=== PATIENT | female | born 1965 | race American Indian/Alaskan Native ===

== ENCOUNTER 2018-10-18 15:52 | Inpatient (IN) | payer OTHER, SELFPAY ==
[2018-10-18] MEDS ORDERED: ACETAMINOPHEN 500 MG TAB ONE (16:00)
[2018-10-18 16:34] LABS: Basophils % 0.7 % (0-1.3); Hematocrit 39.8 % (39.6-49.0); Lymphocytes % 7.5 % (15.3-44.8); MPV 9.4 fL (7.6-11.3); RBC Red Blood Cell Count 4.48 M/uL (4.33-5.43)
[2018-10-18] MEDS ORDERED: ONDANSETRON 4 MG/2 ML VIAL ONE (16:45)
[2018-10-18] MEDS ORDERED: NA CHLORIDE 0.9% 1,000 ML ONE ×2 (16:46→17:55)
[2018-10-18 16:48] LABS: Albumin 2.9 g/dL (3.4-5.0); Bilirubin Direct 0.2 mg/dL (0-0.2); Bilirubin Total 0.6 mg/dL (0.2-1.0); Potassium 3.7 mmol/L (3.5-5.1); Protein, Total 7.3 g/dL (6.4-8.2)
[2018-10-18 16:53] LABS: Urine Blood 3+ (NEG); Urine Glucose NEGATIVE (NEG); Urine Protein 2+ (NEG); Urine Specific Gravity 1.015 (1.005-1.030); Urine pH 5.5 (5.0-7.0)
[2018-10-18 17:07] LABS: Urine Bacteria >50 /HPF (NONE SEEN); Urine Culture Reflex Order REFLEXED; Urine Mucus 2+ /HPF (NONE SEEN)
--- NOTE | 2018-10-18 17:41 | RAD REPORT ---
EXAM DESCRIPTION: CT - Abdomen Pelvis W Contrast - 10/18/2018 5:24 pm CLINICAL HISTORY: Pelvic pain, fever, nausea and vomiting COMPARISON: None. TECHNIQUE: Biphasic, helical CT imaging of the abdomen and pelvis was performed following 100 ml non -ionic IV contrast. Oral contrast was given. All CT scans are performed using dose optimization technique as appropriate and may include automated exposure control or mA/KV adjustment according to patient size. FINDINGS: No suspicious findings in the lung bases. The liver, spleen, and pancreas show no suspicious findings. Cholecystectomy clips are present. No bi liary tree dilatation. Heterogeneous enhancement seen in the left renal parenchyma with numerous areas of diminished enhance ment. Right kidney enhances normally. Edema and stranding are seen in the left perinephric fat. Stran ding is seen along the course of the nondilated left ureter. No obstructing calculus. No solid mass l esion. Bladder is mostly contracted limiting assessment. No bladder calculus. No adrenal abnormalitie s. Uterus and ovaries show no suspicious findings. No dilated bowel loops or bowel wall thickening. Left-sided diverticulosis seen without diverticuliti s. No free air, free fluid or inflammatory stranding. No hernia, mass or bulky lymphadenopathy. No suspicious bony findings. IMPRESSION: Moderate severity left-sided pyelonephritis. No abscess or emergent complication.
--- NOTE | 2018-10-18 17:45 | RAD REPORT ---
EXAM DESCRIPTION: RAD - Chest Single View - 10/18/2018 5:10 pm CLINICAL HISTORY: Back pain, fever COMPARISON: February 2017 TECHNIQUE: AP portable chest image was obtained 1700 hours . FINDINGS: Lungs are clear. Heart and vasculature are normal. No measurable pleural effusion and no p neumothorax. No acute bony abnormality seen. No acute aortic findings suspected. IMPRESSION: No acute cardiopulmonary process. No significant interval change.
[2018-10-18] MEDS ORDERED: NA CHLORIDE 0.9% 500 ML ONE (17:55)
--- NOTE | 2018-10-18 18:04 | ER ---
Nurse's Notes [facility] Name: Magaly Sprague Age: 53 yrs Sex: Female : 1965 Arrival Date: 10/18/2018 Time: 15:54 Bed 30 Private MD: Diagnosis: Urosepsis;Acute tubulo-interstitial nephritis;Fever presenting with conditions classified elsewhere Presentation: 10/18 15:55 Presenting complaint: Patient states: it started last Friday, pain on my lower, fever, hj nausea vomiting, diarrhea started Friday morning; reports body aches;. Transition of care: patient was not received from another setting of care. Onset of symptoms was October 18, 2018. Risk Assessment: Do you want to hurt yourself or someone else? Patient reports no desire to harm self or others. Initial Sepsis Screen: Does the patient meet any 2 criteria? No. Patient's initial sepsis screen is negative. Does the patient have a suspected source of infection? No. Patient's initial sepsis screen is negative. Care prior to arrival: None. 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 - Social history:: Smoking status: Patient uses tobacco products, smokes one pack cigarettes per day. - Ebola Screening: : Patient negative for fever greater than or equal to 101.5 degrees Fahrenheit, and additional compatible Ebola Virus Disease symptoms Patient denies exposure to infectious person Patient denies travel to an Ebola-affected area in the 21 days before illness onset No symptoms or risks identified at this time. Screenin:15 Abuse screen: Denies threats or abuse. Denies injuries from another. Nutritional ca1 screening: No deficits noted. Tuberculosis screening: No symptoms or risk factors identified. Fall Risk IV access (20 points). Total Ovalles Fall Scale indicates No Risk (0-24 pts). Assessment: 16:28 General: Appears in no apparent distress. comfortable, Behavior is calm, cooperative, ca1 appropriate for age, Reports chills for >3 days, fever for > 3 days. Pain: Complains of pain in abdomen Pain radiates to back Pain currently is 6 out of 10 on a pain scale. Pain began 6 days ago. Neuro: Level of Consciousness is awake, alert, obeys commands, Oriented to person, place, time, situation. Cardiovascular: Heart tones S1 S2 present Capillary refill < 3 seconds Patient's skin is warm and dry. Respiratory: Airway is patent Respiratory effort is even, unlabored, Respiratory pattern is regular, symmetrical. GI: Abdomen is round non-distended, Bowel sounds present X 4 quads. Abd is soft X 4 quads Abdomen is tender to palpation X 4 quads. GI: Reports diarrhea, nausea, vomiting, since 6 days ago. : No deficits noted. No signs and/or symptoms were reported regarding the genitourinary system. EENT: No deficits noted. No signs and/or symptoms were reported regarding the EENT system. Derm: Skin is intact, is healthy with good turgor, Skin is pink, warm \T\ dry. Musculoskeletal: Circulation, motion, and sensation intact. Capillary refill < 3 seconds, Range of motion: intact in all extremities. 17:13 Reassessment: Patient appears in no apparent distress at this time. Patient and/or ca1 family updated on plan of care and expected duration. Pain level reassessed. Patient is alert, oriented x 3, equal unlabored respirations, skin warm/dry/pink. 18:10 Reassessment: Patient appears in no apparent distress at this time. Patient and/or ca1 family updated on plan of care and expected duration. Pain level reassessed. Patient is alert, oriented x 3, equal unlabored respirations, skin warm/dry/pink. 19:11 Reassessment: Patient appears in no apparent distress at this time. Patient and/or ca1 family updated on plan of care and expected duration. Pain level reassessed. Patient is alert, oriented x 3, equal unlabored respirations, skin warm/dry/pink. Vital Signs: 15:57 BP 117 / 60; Pulse 117; Resp 18; Temp 102.0(O); Pulse Ox 96% on R/A; Weight 81.65 kg; hj Height 5 ft. 0 in. (152.40 cm); Pain 6/10; 17:15 BP 114 / 63; Pulse 108; Resp 16 S; Temp 99.4(O); Pulse Ox 98% on R/A; ca1 18:10 BP 112 / 80; Pulse 95; Resp 18 S; Temp 99(O); Pulse Ox 100% on R/A; ca1 19:13 BP 103 / 85; Pulse 83; Resp 17 S; Temp 98.3(O); Pulse Ox 100% on R/A; ca1 19:14 Temp 98.4(O); ca1 15:57 Body Mass Index 35.15 (81.65 kg, 152.40 cm) ED Course: 15:54 Patient arrived in ED. mr 15:57 Triage completed. hj 15:57 Arm band placed on right wrist. hj 16:11 Ellis Alonso PA is PHCP. jr8 16:11 Adrian Mccarthy MD is Attending Physician. jr8 16:15 Patient has correct armband on for positive identification. Bed in low position. Call ca1 light in reach. Side rails up X 1. Pulse ox on. NIBP on. 16:15 No provider procedures requiring assistance completed. Inserted saline lock: 20 gauge ca1 in right antecubital area, using aseptic technique. Blood collected. 16:27 Ashley Prakash, RN is Primary Nurse. ca1 17:10 X-ray completed. Portable x-ray completed in exam room. Patient tolerated procedure mh1 well. 17:10 XRAY Chest (1 view) In Process Unspecified. EDMS 17:24 CT Abd/Pelvis - IV Contrast Only In Process Unspecified. EDMS 17:24 CT completed. Patient tolerated procedure well. Patient moved back from CT. mw3 18:00 Inserted saline lock: 20 gauge in left antecubital area, using aseptic technique. Blood ca1 collected. Patient admitted, IV remains in place. 18:02 Cecille Malone MD is Hospitalizing Provider. jr8 Administered Medications: 16:01 Drug: Tylenol 1000 mg Route: PO; hj 19:14 Follow up: Temp 98.4 Oral; Response: No adverse reaction; Temperature is decreased ca1 16:48 Drug: NS 0.9% 1000 ml Route: IV; Rate: 1000 ml; Site: right antecubital; ca1 19:02 Follow up: IV Status: Completed infusion ca1 16:48 Drug: Zofran 4 mg Route: IVP; Site: right antecubital; ca1 17:13 Follow up: Response: No adverse reaction; Nausea is decreased ca1 18:11 Drug: NS 0.9% (30 ml/kg) 30 ml/kg Route: IV; Rate: bolus; Site: right antecubital; ca1 19:03 Follow up: Response: No adverse reaction; IV Status: Completed infusion ca1 18:20 Drug: Rocephin - (cefTRIAXone) 2 grams Route: IVPB; Infused Over: 30 mins; Site: right ca1 antecubital; 19:02 Follow up: Response: No adverse reaction; IV Status: Completed infusion ca1 Outcome: 18:03 Decision to Hospitalize by Provider. aniket 19:45 Admitted to Med/surg accompanied by nurse, via wheelchair, room 209, with chart, Report ca1 called to Diamond Patricio RN 19:45 Condition: stable ca1 19:45 Instructed on the need for admit. 20:03 Patient left the ED. ca1 Signatures: Dispatcher [employer] BRONWYN FeltonJanine mr Triana Nina 1 Ellis Alonso PA PA jr8 Gabe Mckeon RN RN hj Willis, Michelle 3 Ashley Prakash RN RN ca1
--- NOTE | 2018-10-18 18:05 | EDPHYS ---
Physician Documentation [facility] Name: Magaly Sprague Age: 53 yrs Sex: Female : 1965 Arrival Date: 10/18/2018 Time: 15:54 Bed 30 Private MD: ED Physician Adrian Mccarthy HPI: 10/18 16:47 This 53 yrs old Other Male presents to ER via Ambulatory with complaints of Abdominal jr8 Pain, Vomiting/Diarrhea. 16:47 The patient presents with abdominal pain that is diffuse. Onset: The symptoms/episode jr8 began/occurred gradually, 5 day(s) ago. The symptoms do not radiate. Associated signs and symptoms: Pertinent positives: nausea, vomiting, and diarrhea. The symptoms are described as crampy, stabbing. Modifying factors: The symptoms are alleviated by nothing, the symptoms are aggravated by food. Severity of pain: At its worst the pain was moderate in the emergency department the pain is unchanged. The patient has not experienced similar symptoms in the past. The patient has not recently seen a physician. 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 - Social history:: Smoking status: Patient uses tobacco products, smokes one pack cigarettes per day. - Ebola Screening: : Patient negative for fever greater than or equal to 101.5 degrees Fahrenheit, and additional compatible Ebola Virus Disease symptoms Patient denies exposure to infectious person Patient denies travel to an Ebola-affected area in the 21 days before illness onset No symptoms or risks identified at this time. ROS: 16:47 Eyes: Negative for injury, pain, redness, and discharge, ENT: Negative for injury, jr8 pain, and discharge, Neck: Negative for injury, pain, and swelling, Cardiovascular: Negative for chest pain, palpitations, and edema, Respiratory: Negative for shortness of breath, cough, wheezing, and pleuritic chest pain, Back: Negative for injury and pain, MS/Extremity: Negative for injury and deformity, Skin: Negative for injury, rash, and discoloration, Neuro: Negative for headache, weakness, numbness, tingling, and seizure. 16:47 Constitutional: Positive for fever. 16:47 Abdomen/GI: Positive for abdominal pain, nausea, vomiting, and diarrhea, abdominal cramps, abdominal distension. Exam: 16:47 Eyes: Pupils equal round and reactive to light, extra-ocular motions intact. Lids and jr8 lashes normal. Conjunctiva and sclera are non-icteric and not injected. Cornea within normal limits. Periorbital areas with no swelling, redness, or edema. ENT: Nares patent. No nasal discharge, no septal abnormalities noted. Tympanic membranes are normal and external auditory canals are clear. Oropharynx with no redness, swelling, or masses, exudates, or evidence of obstruction, uvula midline. Mucous membranes moist. Neck: Trachea midline, no thyromegaly or masses palpated, and no cervical lymphadenopathy. Supple, full range of motion without nuchal rigidity, or vertebral point tenderness. No Meningismus. Cardiovascular: Regular rate and rhythm with a normal S1 and S2. No gallops, murmurs, or rubs. Normal PMI, no JVD. No pulse deficits. Back: No spinal tenderness. No costovertebral tenderness. Full range of motion. Skin: Warm, dry with normal turgor. Normal color with no rashes, no lesions, and no evidence of cellulitis. MS/ Extremity: Pulses equal, no cyanosis. Neurovascular intact. Full, normal range of motion. Neuro: Awake and alert, GCS 15, oriented to person, place, time, and situation. Cranial nerves II-XII grossly intact. Motor strength 5/5 in all extremities. Sensory grossly intact. Cerebellar exam normal. Normal gait. 16:47 Respiratory: the patient does not display signs of respiratory distress, Respirations: normal, Breath sounds: rhonchi, that are mild, are heard in the right posterior middle lobe and right posterior lower lobe. 16:47 Abdomen/GI: Inspection: obese Bowel sounds: active, all quadrants, Palpation: soft, in all quadrants, mild abdominal tenderness, in the right lower quadrant and left lower quadrant, mass, is not appreciated, rebound tenderness, is not appreciated, voluntary guarding, is not appreciated, involuntary guarding, is not appreciated, no appreciated organomegaly, Indicators: McBurney's point is not tender, Suazo's sign is negative, Rovsing's sign is negative, Liver: tenderness, is not appreciated. Vital Signs: 15:57 BP 117 / 60; Pulse 117; Resp 18; Temp 102.0(O); Pulse Ox 96% on R/A; Weight 81.65 kg; hj Height 5 ft. 0 in. (152.40 cm); Pain 6/10; 17:15 BP 114 / 63; Pulse 108; Resp 16 S; Temp 99.4(O); Pulse Ox 98% on R/A; ca1 18:10 BP 112 / 80; Pulse 95; Resp 18 S; Temp 99(O); Pulse Ox 100% on R/A; ca1 19:13 BP 103 / 85; Pulse 83; Resp 17 S; Temp 98.3(O); Pulse Ox 100% on R/A; ca1 19:14 Temp 98.4(O); ca1 15:57 Body Mass Index 35.15 (81.65 kg, 152.40 cm) hj MDM: 16:11 Patient medically screened. 8 18:02 Data reviewed: vital signs, nurses notes, lab test result(s), radiologic studies, CT jr8 scan, plain films. Data interpreted: Pulse oximetry: on room air is 98 %. Interpretation: normal. Counseling: I had a detailed discussion with the patient and/or guardian regarding: the historical points, exam findings, and any diagnostic results supporting the discharge/admit diagnosis, lab results, radiology results, the need for further work-up and treatment in the hospital. Physician consultation: Cecille Malone MD was called at 18:02, was contacted at 18:02, regarding admission, to the telemetry unit. consult, patient's condition, and will see patient. 10/18 16:12 Order name: Basic Metabolic Panel; Complete Time: 16:49 10/18 16:12 Order name: CBC with Diff; Complete Time: 16:47 10/18 16:12 Order name: Creatinine for Radiology; Complete Time: 16:49 10/18 16:12 Order name: Hepatic Function; Complete Time: 16:49 10/18 16:12 Order name: Lipase; Complete Time: 16:49 10/18 16:12 Order name: Urine Microscopic Only; Complete Time: 17:31 10/18 16:39 Order name: XRAY Chest (1 view); Complete Time: 17:51 [facility] 10/18 16:39 Order name: Flu; Complete Time: 17:31 8 10/18 16:42 Order name: Urine Dipstick--Ancillary (enter results); Complete Time: 17:31 bd 10/18 16:47 Order name: CT Abd/Pelvis - IV Contrast Only; Complete Time: 17:51 [facility] 10/18 17:08 Order name: Urine Culture EDMS 10/18 17:52 Order name: Blood Culture Adult (2) [facility] 10/18 17:52 Order name: Lactate; Complete Time: 18:35 [facility] 10/18 17:52 Order name: Procalcitonin; Complete Time: 19:29 [facility] 10/18 16:12 Order name: IV Saline Lock; Complete Time: 16:28 [facility] 10/18 16:12 Order name: Labs collected and sent; Complete Time: 16:28 [facility] 10/18 16:12 Order name: Urine Dipstick-Ancillary (obtain specimen); Complete Time: 16:28 [facility] Administered Medications: 16:01 Drug: Tylenol 1000 mg Route: PO; hj 19:14 Follow up: Temp 98.4 Oral; Response: No adverse reaction; Temperature is decreased ca1 16:48 Drug: NS 0.9% 1000 ml Route: IV; Rate: 1000 ml; Site: right antecubital; ca1 19:02 Follow up: IV Status: Completed infusion ca1 16:48 Drug: Zofran 4 mg Route: IVP; Site: right antecubital; ca1 17:13 Follow up: Response: No adverse reaction; Nausea is decreased ca1 18:11 Drug: NS 0.9% (30 ml/kg) 30 ml/kg Route: IV; Rate: bolus; Site: right antecubital; ca1 19:03 Follow up: Response: No adverse reaction; IV Status: Completed infusion ca1 18:20 Drug: Rocephin - (cefTRIAXone) 2 grams Route: IVPB; Infused Over: 30 mins; Site: right ca1 antecubital; 19:02 Follow up: Response: No adverse reaction; IV Status: Completed infusion ca1 Disposition: 10/18/18 18:03 Hospitalization ordered by Cecille Malone for Inpatient Admission. Preliminary diagnosis are Urosepsis, Acute tubulo-interstitial nephritis, Fever presenting with conditions classified elsewhere. - Bed requested for Telemetry/MedSurg (Inpatient). - Status is Inpatient Admission. ca1 - Condition is Stable. - Problem is new. - Symptoms have improved. UTI on Admission? Yes Addendum: 10/20/2018 19:42 Co-signature as Attending Physician, Adrian Mccarthy MD. r n Signatures: Dispatcher [employer] [facility] Yolanda Lopez RN RN Adrian Mccarthy MD MD rn Ellis Alonso, ROSE MARY PA jr8 Gabe Mckeon RN RN Ashley Prakash RN RN ca1 Corrections: (The following items were deleted from the chart) 10/18 18:43 18:03 Hospitalization Ordered by Cecille Malone MD for Inpatient Admission. Preliminary dw diagnosis is Urosepsis; Acute tubulo-interstitial nephritis; Fever presenting with conditions classified elsewhere. Bed requested for Telemetry/MedSurg (Inpatient). Status is Inpatient Admission. Condition is Stable. Problem is new. Symptoms have improved. UTI on Admission? Yes. jr8 20:03 18:43 10/18/2018 18:03 Hospitalization Ordered by Cecille Malone MD for Inpatient ca1 Admission. Preliminary diagnosis is Urosepsis; Acute tubulo-interstitial nephritis; Fever presenting with conditions classified elsewhere. Bed requested for Telemetry/MedSurg (Inpatient). Status is Inpatient Admission. Condition is Stable. Problem is new. Symptoms have improved. UTI on Admission? Yes. dw
--- NOTE | 2018-10-18 18:07 | P.HP ---
Certification for Inpatient Patient admitted to: Inpatient With expected LOS: >2 Midnights Patient will require the following post-hospital care: None Practitioner: I am a practitioner with admitting privileges, knowledge of patient current condition, hospital course, and medical plan of care. Services: Services provided to patient in accordance with Admission requirements found in Title 42 Section 412.3 of the Code of Federal Regulations Patient History Date of Service: 10/18/18 Primary Care Provider: Unknown Reason for admission: Flank Pain History of Present Illness: 53 y/o F with Pmhx of TIA who presented to the ED with Flank pain that started Friday and has gotten Progressively worse. Pt stated she also has been having Abdominal Pain, N/V, fever and chills since friday. Since it was not getting better patient decided to come to the ER. Pt has not had similar Symptoms in the past. Does not see any physician. In the ER pt was found to have Pyelonephritis and thus admitted for further care. Allergies No Known Allergies Allergy (Unverified 02/27/17 03:06) Home medications list reviewed: Yes - Past Medical/Surgical History Has patient received pneumonia vaccine in the past: No Diabetic: No -: TIA -: Csection -: Right knee surgery Review of Systems 10-point ROS is otherwise unremarkable Physical Examination - Physical Exam General: Alert, In no apparent distress Respiratory: Clear to auscultation bilaterally, Normal air movement Cardiovascular: Regular rate/rhythm, Normal S1 S2 Gastrointestinal: Normal bowel sounds, No tenderness Musculoskeletal: No tenderness, Tenderness (CVA tenderness ) Integumentary: No rashes Lymphatics: No axilla or inguinal lymphadenopathy - Studies Laboratory Data (last 24 hrs) 10/18/18 16:22: Creatinine 0.98 10/18/18 16:22: WBC 12.8 H, Hgb 13.5 L, Hct 39.8, Plt Count 166 10/18/18 16:22: Sodium 134 L, Potassium 3.7, BUN 12, Creatinine 1.00, Glucose 157 H, Total Bilirubin 0.6, AST 11 L, ALT 19, Alkaline Phosphatase 95, Lipase 57 L Microbiology Data (last 24 hrs): 10/18/18 16:43 Nasopharnyx Influenza Type A Antigen Screen - Final 10/18/18 16:43 Nasopharnyx Influenza Type B Antigen Screen - Final Assessment and Plan - Problems (Diagnosis) (1) Sepsis Current Visit: Yes Status: Acute Plan: Sepsis most likely 2.2 to UTI and Pyelonephritis -IV rocephin for now -IV fluids and Pain mgmt -Hemodynamically stable -Blood and urine culture pending at this time Qualifiers: Sepsis type: sepsis due to unspecified organism Sepsis acute organ dysfunction status: unspecified Qualified Code(s): A41.9 - Sepsis, unspecified organism (2) Pyelonephritis Current Visit: Yes Status: Acute Plan: Pt with Flank Pain and CT with Pyelonephritis -Urine Analysis with UTI and CT with Mod Pyelonephrtis with No Abscess -IV Rocephin and IV fluids for now -Blood and Urine Culture pending -pain and Nausea Mgmt - Plan Admit to Med surg for Pyelonephritis Mgmt. Discharge Plan: Home Plan to discharge in: Greater than 2 days - Advance Directives Does patient have a Living Will: No Does patient have a Durable POA for Healthcare: No - Code Status/Comfort Care Code Status Assessed: Yes Critical Care: No
[2018-10-18] MEDS ORDERED: CEFTRIAXONE/SWI 1gm 2 GM/20 ML SYR ONE (18:08)
[2018-10-18] MEDS: NA CHLORIDE 0.9% 1,000 ML IV SCH (20:43)
[2018-10-18] MEDS: MORPHINE 2 MG/ML SYR IV PRN (20:44)
[2018-10-19] MEDS: MORPHINE 2 MG/ML SYR IV PRN ×4 (01:14→21:27)
[2018-10-19] MEDS: NA CHLORIDE 0.9% 1,000 ML IV SCH ×4 (04:00→15:58)
[2018-10-19 06:07] LABS: Basophils % 0.5 % (0-1.3); Lymphocytes % 11.9 % (15.3-44.8); MPV 9.8 fL (7.6-11.3); RBC Red Blood Cell Count 3.81 M/uL (3.86-4.86)
[2018-10-19 06:11] LABS: ALT/SGPT 29 U/L (12-78); AST/SGOT 26 U/L (15-37); Albumin 2.3 g/dL (3.4-5.0); Alkaline Phosphatase 86 U/L (45-117); BUN Blood Urea Nitrogen 10 mg/dL (7-18); Bicarbonate 23 mmol/L (21-32); Bilirubin Total 0.4 mg/dL (0.2-1.0); Glucose Level 108 mg/dL (74-106); Magnesium 2.3 mg/dL (1.8-2.4); Phosphorus 2.5 mg/dL (2.5-4.9); Potassium 3.5 mmol/L (3.5-5.1); Protein, Total 5.9 g/dL (6.4-8.2); Sodium Level 141 mmol/L (136-145)
[2018-10-19] MEDS ORDERED: POTASSIUM 25 MEQ EFFERV TAB PO ONE (08:00)
[2018-10-19] MEDS: ENOXAPARIN 40 MG/0.4 ML SQ SCH (08:08)
[2018-10-19] MEDS: CEFTRIAXONE/SWI 1gm 1 GM/10 ML SYR IVP SCH (08:10)
--- NOTE | 2018-10-19 10:41 | P.PN ---
Subjective Date of Service: 10/19/18 Primary Care Provider: Unknown Chief Complaint: Flank Pain Patient seen and examined at bedside with RN. Chart reviewed. Case discussed with patient at bedside. States that she feels much better than before however still continues to have right flank pain. Review of Systems 10-point ROS is otherwise unremarkable Physical Examination - Vital Signs Temperature: 98.1 F Blood Pressure: 129/64 Pulse: 89 Respirations: 16 Pulse Ox (%): 95 - Physical Exam General: Alert, In no apparent distress HEENT: Atraumatic, PERRLA, EOMI Neck: Supple, JVD not distended Respiratory: Clear to auscultation bilaterally, Normal air movement Cardiovascular: Regular rate/rhythm, Normal S1 S2 Gastrointestinal: Normal bowel sounds, Tenderness (CVA tenderness on the right side) Musculoskeletal: No tenderness Integumentary: No rashes Neurological: Normal speech, Normal tone, Normal affect Lymphatics: No axilla or inguinal lymphadenopathy - Studies Laboratory Data (last 24 hrs) 10/18/18 16:22: Creatinine 0.98 10/18/18 16:22: WBC 12.8 H, Hgb 13.5 L, Hct 39.8, Plt Count 166 10/18/18 16:22: Sodium 134 L, Potassium 3.7, BUN 12, Creatinine 1.00, Glucose 157 H, Total Bilirubin 0.6, AST 11 L, ALT 19, Alkaline Phosphatase 95, Lipase 57 L Microbiology Data (last 24 hrs): 10/18/18 16:43 Nasopharnyx Influenza Type A Antigen Screen - Final 10/18/18 16:43 Nasopharnyx Influenza Type B Antigen Screen - Final Medications List Reviewed: Yes Assessment And Plan - Current Problems (Diagnosis) (1) Sepsis Current Visit: Yes Status: Acute Plan: Sepsis most likely 2.2 to UTI and Pyelonephritis -IV rocephin for now -IV fluids and Pain mgmt -Hemodynamically stable -Blood and urine culture pending at this time Qualifiers: Sepsis type: sepsis due to unspecified organism Sepsis acute organ dysfunction status: unspecified Qualified Code(s): A41.9 - Sepsis, unspecified organism (2) Pyelonephritis Current Visit: Yes Status: Acute Plan: Pt with Flank Pain and CT with Pyelonephritis -Urine Analysis with UTI and CT with Mod Pyelonephrtis with No Abscess -IV Rocephin and IV fluids for now -Blood and Urine Culture pending -pain and Nausea Mgmt - Plan Pending clinical improvement at this time Discharge Plan: Home Plan to discharge in: 48 Hours - Code Status/Comfort Care Code Status Assessed: Yes Critical Care: No
[2018-10-19] MEDS: ONDANSETRON 4 MG/2 ML VIAL IV PRN (15:57)
[2018-10-20] MEDS: NA CHLORIDE 0.9% 1,000 ML IV SCH ×4 (00:27→23:12)
[2018-10-20 05:44] LABS: Absolute Lymphocytes (CBC) 1.1 K/uL (0.7-4.9); Basophils % 0.8 % (0-1.3); Hematocrit 33.1 % (36.0-45.0); MPV 9.6 fL (7.6-11.3)
[2018-10-20] MEDS: MORPHINE 2 MG/ML SYR IV PRN ×4 (06:00→21:35)
[2018-10-20 06:07] LABS: ALT/SGPT 25 U/L (12-78); AST/SGOT 16 U/L (15-37); Albumin 2.2 g/dL (3.4-5.0); Alkaline Phosphatase 94 U/L (45-117); BUN Blood Urea Nitrogen 8 mg/dL (7-18); Bicarbonate 24 mmol/L (21-32); Bilirubin Total 0.3 mg/dL (0.2-1.0); Glucose Level 97 mg/dL (74-106); Magnesium 2.2 mg/dL (1.8-2.4); Phosphorus 2.7 mg/dL (2.5-4.9); Potassium 3.7 mmol/L (3.5-5.1); Sodium Level 143 mmol/L (136-145)
[2018-10-20] MEDS: CEFTRIAXONE/SWI 1gm 1 GM/10 ML SYR IVP SCH (08:13)
[2018-10-20] MEDS: ENOXAPARIN 40 MG/0.4 ML SQ SCH (08:13)
[2018-10-20] MEDS ORDERED: POTASSIUM CL SA 10 MEQ TAB PO ONE (09:00)
--- NOTE | 2018-10-20 11:37 | P.PN ---
Subjective Date of Service: 10/20/18 Primary Care Provider: Unknown Chief Complaint: Flank Pain Patient seen and examined at bedside with RN. Chart reviewed. Case discussed with patient at bedside. States that she feels much better than before however still continues to have right flank pain. Review of Systems 10-point ROS is otherwise unremarkable Physical Examination - Vital Signs Temperature: 98.7 F Blood Pressure: 126/60 Pulse: 85 Respirations: 18 Pulse Ox (%): 96 - Physical Exam General: Alert, In no apparent distress HEENT: Atraumatic, PERRLA, EOMI Neck: Supple, JVD not distended Respiratory: Clear to auscultation bilaterally, Normal air movement Cardiovascular: Regular rate/rhythm, Normal S1 S2 Gastrointestinal: Normal bowel sounds, No tenderness Musculoskeletal: No tenderness Integumentary: No rashes Neurological: Normal speech, Normal tone, Normal affect Lymphatics: No axilla or inguinal lymphadenopathy - Studies Medications List Reviewed: Yes Assessment And Plan - Current Problems (Diagnosis) (1) Sepsis Current Visit: Yes Status: Acute Plan: Sepsis most likely 2.2 to UTI and Pyelonephritis -IV rocephin for now -IV fluids and Pain mgmt -Hemodynamically stable -urine culture positive for 3+ gram negative rods at this time Qualifiers: Sepsis type: sepsis due to unspecified organism Sepsis acute organ dysfunction status: unspecified Qualified Code(s): A41.9 - Sepsis, unspecified organism (2) Pyelonephritis Current Visit: Yes Status: Acute Plan: Pt with Flank Pain and CT with Pyelonephritis -Urine Analysis with UTI and CT with Mod Pyelonephrtis with No Abscess -IV Rocephin and IV fluids for now -Blood and Urine Culture pending -pain and Nausea Mgmt - Plan Pending clinical improvement at this time Discharge Plan: Home Plan to discharge in: Greater than 2 days - Code Status/Comfort Care Code Status Assessed: Yes Critical Care: No
[2018-10-20] MEDS: ONDANSETRON 4 MG/2 ML VIAL IV PRN ×2 (11:47→17:14)
[2018-10-21] MEDS: MORPHINE 2 MG/ML SYR IV PRN (03:15)
[2018-10-21 05:53] LABS: Absolute Lymphocytes (CBC) 1.5 K/uL (0.7-4.9); Basophils % 0.7 % (0-1.3); Hematocrit 32.7 % (36.0-45.0); Lymphocytes % 20.2 % (15.3-44.8); MPV 9.1 fL (7.6-11.3); RBC Red Blood Cell Count 3.67 M/uL (3.86-4.86)
[2018-10-21 06:07] LABS: ALT/SGPT 35 U/L (12-78); AST/SGOT 24 U/L (15-37); Albumin 2.3 g/dL (3.4-5.0); Alkaline Phosphatase 130 U/L (45-117); BUN Blood Urea Nitrogen 7 mg/dL (7-18); Bicarbonate 25 mmol/L (21-32); Bilirubin Total 0.3 mg/dL (0.2-1.0); Glucose Level 91 mg/dL (74-106); Magnesium 2.2 mg/dL (1.8-2.4); Phosphorus 3.6 mg/dL (2.5-4.9); Potassium 3.8 mmol/L (3.5-5.1); Protein, Total 6.1 g/dL (6.4-8.2); Sodium Level 143 mmol/L (136-145)
[2018-10-21] MEDS ORDERED: POTASSIUM 25 MEQ EFFERV TAB PO ONE (06:08)
[2018-10-21] MEDS: ENOXAPARIN 40 MG/0.4 ML SQ SCH (08:51)
[2018-10-21] MEDS: CEFTRIAXONE/SWI 1gm 1 GM/10 ML SYR IVP SCH (08:51)
--- NOTE | 2018-10-21 15:14 | P.DS ---
Admission Date: 10/18/18 Discharge Date: 10/21/18 Primary Care Provider: Unknown Disposition: ROUTINE DISCHARGE Discharge Condition: GOOD Reason for Admission: Flank Pain - Problems (1) Sepsis Status: Acute Qualifiers: Sepsis type: sepsis due to unspecified organism Sepsis acute organ dysfunction status: unspecified Qualified Code(s): A41.9 - Sepsis, unspecified organism (2) Pyelonephritis Status: Acute Brief History of Present Illness: 53 y/o F with Pmhx of TIA who presented to the ED with Flank pain that started Friday and has gotten Progressively worse. Pt stated she also has been having Abdominal Pain, N/V, fever and chills since friday. Since it was not getting better patient decided to come to the ER. Pt has not had similar Symptoms in the past. Does not see any physician. In the ER pt was found to have Pyelonephritis and thus admitted for further care. Hospital Course: Overall during the hospital stay Pt remained stable. Pt was admitted to the hospital for pyelonephritis with right flank pain. Was started on IV abx. Had Marked improvement in the symptoms. No Fever or chills noted for the next 24 to 48hrs. urine culture + for gram - rods. Blood Culture negative. Pt once tolerating Diet and Ambulation and was pain free DC home with PO ciprofloxacin for Pyelonephritis. Vital Signs/Physical Exam: Temp Pulse Resp BP Pulse Ox 97.8 F 72 16 132/62 95 10/21/18 08:00 10/21/18 08:00 10/21/18 08:00 10/21/18 08:00 10/21/18 08:00 General: Alert, In no apparent distress HEENT: Atraumatic, PERRLA, EOMI Neck: Supple, JVD not distended Respiratory: Clear to auscultation bilaterally, Normal air movement Cardiovascular: Regular rate/rhythm, Normal S1 S2 Gastrointestinal: Normal bowel sounds, No tenderness Musculoskeletal: No tenderness Integumentary: No rashes Neurological: Normal speech, Normal tone, Normal affect Lymphatics: No axilla or inguinal lymphadenopathy Laboratory Data at Discharge: WBC 7.6 K/uL (4.3-10.9) 10/21/18 05:28 Hgb 11.4 g/dL (12.0-15.0) L 10/21/18 05:28 Hct 32.7 % (36.0-45.0) L 10/21/18 05:28 Plt Count 191 K/uL (152-406) D 10/21/18 05:28 Sodium 143 mmol/L (136-145) 10/21/18 05:28 Potassium 3.8 mmol/L (3.5-5.1) 10/21/18 05:28 BUN 7 mg/dL (7-18) 10/21/18 05:28 Creatinine 0.61 mg/dL (0.55-1.3) 10/21/18 05:28 Glucose 91 mg/dL (74-106) 10/21/18 05:28 Phosphorus 3.6 mg/dL (2.5-4.9) 10/21/18 05:28 Magnesium 2.2 mg/dL (1.8-2.4) 10/21/18 05:28 Total Bilirubin 0.3 mg/dL (0.2-1.0) 10/21/18 05:28 AST 24 U/L (15-37) 10/21/18 05:28 ALT 35 U/L (12-78) 10/21/18 05:28 Alkaline Phosphatase 130 U/L (45-117) H 10/21/18 05:28 Lipase 57 U/L (73-393) L 10/18/18 16:22 Home Medications: Ciprofloxacin HCl [Cipro 500 MG Tablet] 500 mg PO BID #28 tab 10/21/18 New Medications: Ciprofloxacin HCl [Cipro 500 MG Tablet] 500 mg PO BID #28 tab Diet: Regular Activity: Ad cassandra
== END 2018-10-21 10:35 | disposition home or self-care (01) | DRG 872 ==
LOC: ER 15:52 → EDSEX 15:52 → ERHOLD 17:59 → 2ND 19:40
PROVIDERS: ADMIT Family Medicine; ATTEND Family Medicine
DX: A41.9 Sepsis, unspecified organism (principal); N10 Acute pyelonephritis; B96.20 Unspecified Escherichia coli [E. coli] as the cause of diseases classified elsewhere; Z86.73 Personal history of transient ischemic attack (TIA), and cerebral infarction without residual deficits
CPT/HCPCS: 36415; 71045; 74177; 80048; 80053; 80076; 81003; 81015; 83605; 83690; 83735; 84100; 84145; 85025; 87040; 87077; 87086; 87088; 87186; 87804; 96361; 96365; 96375; 99285; J0696; J1650; J2270; J2405; J7030; Q9967

== ENCOUNTER 2019-08-19 19:36 | Emergency (ER) | payer OTHER, SELFPAY ==
[2019-08-19] MEDS ORDERED: IPRATROPIUM BROM 0.5MG/2.5ML ONE (20:27)
[2019-08-19] MEDS ORDERED: ALBUTEROL 2.5 MG/3 ML NEB SOL ONE (20:27)
[2019-08-19] MEDS ORDERED: METHYLPREDNISOLONE 125 MG INJ ONE (20:27)
[2019-08-19] MEDS ORDERED: MECLIZINE HCL 12.5 MG TAB ONE ×2 (20:27→20:33)
[2019-08-19] MEDS ORDERED: NA CHLORIDE 0.9% 1,000 ML ONE (20:28)
[2019-08-19 20:36] LABS: Arterial Blood Carboxyhemoglob 4.6 % (0-1.5); Blood Gas Oxyhemoglobin 90.5 % (94-97); Blood O2 Saturation 95.8 % (92-98.5)
--- NOTE | 2019-08-19 20:55 | RAD REPORT ---
EXAM DESCRIPTION: RAD - Chest Single View - 08/19/2019 8:44 pm CLINICAL HISTORY: Cough;Dyspnea COMPARISON: Portable October 18, 2018 TECHNIQUE: AP portable chest image was obtained 08/19/2019 8:44 pm . FINDINGS: No peripheral mass or consolidation. Interstitial pattern is accentuated by shallow inspir ation. Substantial change from the comparison is not seen. Mild edema or infiltrate would be possible . Heart and vasculature are normal. No measurable pleural effusion and no pneumothorax. No acute bony abnormality seen. No acute aortic findings suspected. IMPRESSION: No focal mass or consolidation. Baseline interstitial pattern accentuated by shallow inspiration potentially masking early edema or i nfiltrate.
[2019-08-19 20:56] LABS: Absolute Lymphocytes (CBC) 2.6 K/uL (0.7-4.9); Basophils % 1.2 % (0-1.3); Hematocrit 44.2 % (36.0-45.0); Lymphocytes % 28.8 % (15.3-44.8); MPV 9.2 fL (7.6-11.3); RBC Red Blood Cell Count 4.89 M/uL (3.86-4.86)
[2019-08-19 20:58] LABS: Protime INR 0.9
[2019-08-19 21:10] LABS: ALT/SGPT 21 U/L (12-78); AST/SGOT 15 U/L (15-37); Albumin 3.5 g/dL (3.4-5.0); Alkaline Phosphatase 104 U/L (45-117); BUN Blood Urea Nitrogen 24 mg/dL (7-18); Bicarbonate 24 mmol/L (21-32); Bilirubin Direct < 0.1 mg/dL (0-0.2); Bilirubin Total 0.2 mg/dL (0.2-1.0); Glucose Level 129 mg/dL (74-106); Magnesium 2.2 mg/dL (1.8-2.4); NT PRO-BNP 32 pg/mL (<125); Potassium 3.6 mmol/L (3.5-5.1); Sodium Level 143 mmol/L (136-145); Troponin (Emerg Dept Use Only) < 0.02 ng/mL (0.0-0.045)
--- NOTE | 2019-08-19 21:56 | ER ---
Nurse's Notes [facility] Name: Magaly Sprgaue Age: 54 yrs Sex: Female : 1965 Arrival Date: 08/19/2019 Time: 19:39 Bed 6 Private MD: Diagnosis: Asthmatic bronchitis. Dizziness Presentation: 08/18 19:43 Chief complaint: Patient states: is having a hard lanny breathing and having pain between iw shoulder blades, started wheezing on Friday and is getting worse, today started feeling dizzy and having pain on right side of chest, and her feet are swollen. Coronavirus screen: Patient reports a cough. Patient reports shortness of breath or difficulty breathing. Patient denies measured and/or subjective temperature greater than 100.4F prior to today's visit. Patient denies travel on a cruise ship or to a country the [facility] currently lists as an affected area. Patient denies contact with known and/or suspected case of COVID-19. Prior COVID test collected on: July, [facility], pt is employee there, test was negative , pt had no symptoms at that time, test was done for entire facility. Coronavirus screen: Ebola Screen: Patient negative for fever greater than or equal to 101.5 degrees Fahrenheit, and additional compatible Ebola Virus Disease symptoms Patient denies exposure to infectious person. Patient denies travel to an Ebola-affected area in the 21 days before illness onset. No symptoms or risks identified at this time. Initial Sepsis Screen: Does the patient meet any 2 criteria? No. Patient's initial sepsis screen is negative. Does the patient have a suspected source of infection? No. Patient's initial sepsis screen is negative. Risk Assessment: Do you want to hurt yourself or someone else? Patient reports no desire to harm self or others. Onset of symptoms was August 16, 2019. 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 - Social history:: Smoking status: Patient reports the use of cigarette tobacco products, 1/2 ppd but slowed down 10 DAYS AGO . Screenin:38 Abuse screen: Denies threats or abuse. Denies injuries from another. Nutritional rr5 screening: No deficits noted. Tuberculosis screening: No symptoms or risk factors identified. Fall Risk IV access (20 points). Total Ovalles Fall Scale indicates No Risk (0-24 pts). Assessment: 19:40 General: Appears in no apparent distress. comfortable, Behavior is calm, cooperative, rr5 appropriate for age. 19:40 Pain: Complains of pain in chest Pain radiates to back Pain currently is 8 out of 10 on rr5 a pain scale. Quality of pain is described as aching, Pain began gradually, Is intermittent. Neuro: Level of Consciousness is awake, alert, obeys commands, Oriented to person, place, time, situation, Appropriate for age Reports dizziness. Cardiovascular: Reports chest pain, shortness of breath, Capillary refill < 3 seconds Patient's skin is warm and dry. Respiratory: Reports shortness of breath Airway is patent Respiratory effort is even, unlabored, Respiratory pattern is regular, symmetrical. GI: No signs and/or symptoms were reported involving the gastrointestinal system. : No signs and/or symptoms were reported regarding the genitourinary system. EENT: No signs and/or symptoms were reported regarding the EENT system. Derm: Skin is intact, is healthy with good turgor, Skin temperature is warm. Musculoskeletal: Capillary refill < 3 seconds, Reports swelling lower extremities. 21:00 Reassessment: Patient appears in no apparent distress at this time. No changes from rr5 previously documented assessment. 21:53 Reassessment: Patient appears in no apparent distress at this time. Patient is alert, rr5 oriented x 3, equal unlabored respirations, skin warm/dry/pink. awaiting for results. Patient states symptoms have improved. 22:17 Reassessment: Patient appears in no apparent distress at this time. Patient is alert, rr5 oriented x 3, equal unlabored respirations, skin warm/dry/pink. discharge instruction given and explained without complaints made. Vital Signs: 19:43 BP 156 / 100; Pulse 98; Resp 18 S; Temp 97.4; Pulse Ox 100% on R/A; Weight 84.82 kg; iw Height 5 ft. 1 in. (154.94 cm); Pain 8/10; 20:56 BP 122 / 64; Pulse 85; Resp 16; Pulse Ox 99% on R/A; rr5 21:40 BP 130 / 58; Pulse 80; Resp 17; Pulse Ox 99% ; rr5 19:43 Body Mass Index 35.33 (84.82 kg, 154.94 cm) iw ED Course: 19:39 Patient arrived in ED. ds1 19:47 Triage completed. iw 19:48 Arm band placed on. iw 20:03 Jona Osei MD is Attending Physician. pkl 20:10 Patient has correct armband on for positive identification. Placed in gown. Bed in low rr5 position. Call light in reach. monitoring engineer on. Pulse ox on. NIBP on. 20:17 Osvaldo Castillo, EBONI is Primary Nurse. rr5 20:35 EKG done, by ED staff, reviewed by Jona Osei MD. ds4 20:40 Inserted saline lock: 22 gauge in right forearm, using aseptic technique. Blood ds4 collected. 20:45 XRAY Chest (1 view) In Process Unspecified. EDMS 21:13 CBC with Diff Sent. ds4 21:13 PT-INR Sent. ds4 21:23 US Extremity Venous Unilateral Ltd In Process Unspecified. EDMS 21:43 No provider procedures requiring assistance completed. Patient maintains SpO2 rr5 saturation greater than 95% on room air. 22:17 IV discontinued, intact, bleeding controlled, No redness/swelling at site. Pressure rr5 dressing applied. Administered Medications: 20:34 Drug: Antivert 50 mg Route: PO; rr5 21:30 Follow up: Response: No adverse reaction rr5 20:41 Drug: NS 0.9% 1000 ml Route: IV; Rate: 125 ml/hr; Site: right forearm; rr5 22:18 Follow up: Response: No adverse reaction; IV Status: Order to discontinue infusion; IV rr5 Intake: 125ml 20:42 Drug: SOLU-Medrol 125 mg Route: IVP; Site: right forearm; rr5 21:40 Follow up: Response: No adverse reaction rr5 20:42 Drug: Albuterol - atroVENT (3:1) (2.5 mg - 0.5 mg) 3 ml Route: Nebulizer; rr5 21:40 Follow up: Response: No adverse reaction rr5 Intake: 22:18 IV: 125ml; Total: 125ml. rr5 Outcome: 21:55 Discharge ordered by . floresita 22:17 Discharged to home ambulatory. rr5 22:17 Condition: stable 22:17 Discharge instructions given to patient, Instructed on discharge instructions, follow up and referral plans. medication usage, Demonstrated understanding of instructions, follow-up care, medications, Prescriptions given X x5 22:19 Patient left the ED. rr5 Signatures: Dispatcher [employer] EDDE Jona Osei MD MD pkl Sanford, Demi ds1 Josee Reyes, RN RN Nathanael Eaton ds4 Osvaldo Castillo, EBONI RN rr5 Corrections: (The following items were deleted from the chart) 21:14 20:45 Inserted saline lock: 22 gauge in right forearm, using aseptic technique. Blood ds4 collected. ds4
--- NOTE | 2019-08-19 21:56 | EDPHYS ---
Physician Documentation [facility] Name: Magaly Sprague Age: 54 yrs Sex: Female : 1965 Arrival Date: 08/19/2019 Time: 19:39 Bed 6 Private MD: ED Physician Jona Osei HPI: 08/18 20:13 This 54 yrs old Other Female presents to ER via Ambulatory with complaints of Chest pkl Pain, Dizziness. 20:13 The patient has shortness of breath at rest. Onset: The symptoms/episode began/occurred pkl 4 day(s) ago. Associated signs and symptoms: Pertinent positives: productive cough, dizziness, swelling left leg. 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 - Social history:: Smoking status: Patient reports the use of cigarette tobacco products, 1/2 ppd but slowed down 10 DAYS AGO . ROS: 20:13 Eyes: Negative for injury, pain, redness, and discharge, ENT: Negative for injury, pkl pain, and discharge, Neck: Negative for injury, pain, and swelling, Cardiovascular: Negative for chest pain, palpitations, and edema. 20:13 Respiratory: Positive for cough, with clear sputum, shortness of breath, wheezing. 20:13 Abdomen/GI: Negative for abdominal pain, nausea, vomiting, and diarrhea. 20:13 Back: Positive for of the upper back between shoulder blades. 20:13 : Negative for urinary symptoms. 20:13 MS/extremity: Positive for swelling, of the left leg. 20:13 Skin: Negative for rash. 20:13 Neuro: Positive for dizziness, Negative for loss of consciousness. Exam: 20:13 Head/Face: Normocephalic, atraumatic. Eyes: Pupils equal round and reactive to light, pkl extra-ocular motions intact. Lids and lashes normal. Conjunctiva and sclera are non-icteric and not injected. Cornea within normal limits. Periorbital areas with no swelling, redness, or edema. ENT: Nares patent. No nasal discharge, no septal abnormalities noted. Tympanic membranes are normal and external auditory canals are clear. Oropharynx with no redness, swelling, or masses, exudates, or evidence of obstruction, uvula midline. Mucous membranes moist. Neck: Trachea midline, no thyromegaly or masses palpated, and no cervical lymphadenopathy. Supple, full range of motion without nuchal rigidity, or vertebral point tenderness. No Meningismus. Chest/axilla: Normal chest wall appearance and motion. Nontender with no deformity. No lesions are appreciated. Cardiovascular: Regular rate and rhythm with a normal S1 and S2. No gallops, murmurs, or rubs. Normal PMI, no JVD. No pulse deficits. 20:13 Respiratory: the patient does not display signs of respiratory distress, Respirations: normal, Breath sounds: bronchial sounds, that are mild, are scattered, rhonchi, that are moderate, are scattered. 20:13 Abdomen/GI: Bowel sounds: normal. 20:13 Back: pain, that is moderate, of the upper back. 20:13 : Exam negative for acute changes. 20:13 Musculoskeletal/extremity: Extremities: grossly normal except: noted in the swelling left leg: Vital Signs: 19:43 BP 156 / 100; Pulse 98; Resp 18 S; Temp 97.4; Pulse Ox 100% on R/A; Weight 84.82 kg; iw Height 5 ft. 1 in. (154.94 cm); Pain 8/10; 20:56 BP 122 / 64; Pulse 85; Resp 16; Pulse Ox 99% on R/A; rr5 21:40 BP 130 / 58; Pulse 80; Resp 17; Pulse Ox 99% ; rr5 19:43 Body Mass Index 35.33 (84.82 kg, 154.94 cm) iw MDM: 21:47 Data reviewed: vital signs, nurses notes, lab test result(s), EKG, radiologic studies, pkl plain films. ED course: patient feeling better. Discussed lab. and imaging studies with patient. Advised to follow up with PCP in 2 to 3 days. To return if necessary. Patient understood instruction. 21:55 Patient medically screened. pkl 04 20:11 Order name: Basic Metabolic Panel; Complete Time: 21:42 pkl 06/04 20:11 Order name: CBC with Diff; Complete Time: 21:42 pkl 06/04 20:11 Order name: LFT's; Complete Time: 21:42 pkl /04 20:11 Order name: Magnesium; Complete Time: 21:42 pkl /04 20:11 Order name: NT PRO-BNP; Complete Time: 21:42 pkl /04 20:11 Order name: PT-INR; Complete Time: 21:42 pkl /04 20:11 Order name: Troponin (emerg Dept Use Only); Complete Time: 21:42 pkl /04 20:11 Order name: XRAY Chest (1 view); Complete Time: 21:42 pkl /04 20:11 Order name: D-Dimer; Complete Time: 21:42 pkl /04 20:11 Order name: ABG; Complete Time: 21:42 pkl /04 20:12 Order name: US Extremity Venous Unilateral Ltd pkl /04 20:11 Order name: EKG; Complete Time: 20:11 pkl /04 20:11 Order name: Cardiac monitoring; Complete Time: 20:38 pkl /04 20:11 Order name: EKG - Nurse/Tech; Complete Time: 20:38 pkl /04 20:11 Order name: IV Saline Lock; Complete Time: 20:45 pkl /04 20:11 Order name: Labs collected and sent; Complete Time: 20:45 pkl /04 20:11 Order name: O2 Per Protocol; Complete Time: 20:38 pkl 06/04 20:11 Order name: O2 Sat Monitoring; Complete Time: 20:38 pkl Administered Medications: 20:34 Drug: Antivert 50 mg Route: PO; rr5 21:30 Follow up: Response: No adverse reaction rr5 20:41 Drug: NS 0.9% 1000 ml Route: IV; Rate: 125 ml/hr; Site: right forearm; rr5 22:18 Follow up: Response: No adverse reaction; IV Status: Order to discontinue infusion; IV rr5 Intake: 125ml 20:42 Drug: SOLU-Medrol 125 mg Route: IVP; Site: right forearm; rr5 21:40 Follow up: Response: No adverse reaction rr5 20:42 Drug: Albuterol - atroVENT (3:1) (2.5 mg - 0.5 mg) 3 ml Route: Nebulizer; rr5 21:40 Follow up: Response: No adverse reaction rr5 Disposition: 08/19/19 21:55 Discharged to Home. Impression: Asthmatic bronchitis. Dizziness. - Condition is Stable. - Prescriptions for Antivert 25 mg Oral Tablet - take 1 tablet by ORAL route every 8 hours As needed; 20 tablet. Prednisone 20 mg Oral Tablet - take 1 tablet by ORAL route once daily for 5 days; 5 tablet. Zithromax Z- [place] 250 mg Oral Tablet - take 1 tablet by ORAL route as directed for 5 days Day 1 - take two (2) tablets one time. Day 2, 3, 4 , 5 take one (1) tablet once daily.; 6 tablet. Albuterol Sulfate 90 mcg/actuation - inhale 1-2 puff by INHALATION route every 4-6 hours; 1 Inhaler. Guaifenesin AC 10- 100 mg/5 mL Oral Liquid - take 10 milliliters by ORAL route every 8 hours As needed; 120 milliliter. - Work release form, Medication Reconciliation Form, Thank You Letter, Antibiotic Education, Prescription Opioid Use form. - Follow up: Private Physician; When: 2 - 3 days; Reason: Re-evaluation by your physician. - Problem is new. - Symptoms have improved. Signatures: Dispatcher [employer] EDMS Jona Osei MD MD pkl Josee Reyes, EBONI RN iw Osvaldo Castillo RN RN rr5 Corrections: (The following items were deleted from the chart) 22:19 21:55 08/19/2019 21:55 Discharged to Home. Impression: Asthmatic bronchitis. Dizziness. rr5 Condition is Stable. Forms are Medication Reconciliation Form, Thank You Letter, Antibiotic Education, Prescription Opioid Use. Follow up: Private Physician; When: 2 - 3 days; Reason: Re-evaluation by your physician. Problem is new. Symptoms have improved. pkl
[2019-08-19 22:27] VITALS: TEMP 97.4
[2019-08-19 22:29] VITALS: O2SAT 99
[2019-08-19 22:30] VITALS: BP 130/58
--- NOTE | 2019-08-20 08:20 | RAD REPORT ---
EXAM DESCRIPTION: US - Extremity Venous Uni Ltd - 08/19/2019 9:23 pm CLINICAL HISTORY: SWELLING Leg swelling and edema. COMPARISON: No comparisons FINDINGS: Left lower extremity venous system was interrogated with Doppler technique. Normal flow, c ompressibility and augmentation was noted. There is no DVT present. IMPRESSION: No evidence of left lower extremity deep venous thrombosis.
--- NOTE | 2019-08-20 11:52 | EKG ---
Test Date: 2019-08-19 Test Time: 20:01:20 Immigration Attorney: LEE MEASUREMENT RESULTS: Intervals: Rate: 90 IL: 142 QRSD: 86 QT: 376 QTc: 459 [place]: P: 63 IL: 142 QRS: 4 T: 47 INTERPRETIVE STATEMENTS: Sinus rhythm with occasional premature ventricular complexes Otherwise normal ECG Compared to ECG 02/27/2017 00:03:10 Ventricular premature complex(es) now present Sinus tachycardia no longer present Electronically Signed On 08-20-19 11:50:15 CDT by Jairo Coleman
== END 2019-08-19 22:19 | disposition home or self-care (01) ==
LOC: ER 19:36
DX: J45.909 Unspecified asthma, uncomplicated (principal); R42 Dizziness and giddiness
CPT/HCPCS: 96361; 93005; 85025; 80048; 36415; 83735; 85610; 85379; 80076; 84484; 83880; 71045; 93971; 94640; 82805; 96374; 99285; J8597 ×2; J7030; J2930

== ENCOUNTER 2020-05-25 11:08 | Emergency (ER) | payer OTHER ==
--- NOTE | 2020-05-25 16:57 | EDPHYS ---
Physician Documentation [facility] Name: Magaly Sprague Age: 55 yrs Sex: Female : 1965 Arrival Date: 05/25/2020 Time: 11:11 Bed 26 Private MD: out of town, doctor ED Physician Fermin Lomax HPI: 05/25 16:50 This 55 yrs old Other Female presents to ER via Ambulatory with complaints of Jaw Pain, willy Difficulty Swallowing. 16:50 The patient presents with dysphagia, of both solids and liquids. The patient describes willy throat pain as constant. 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 - Social history:: Smoking status: Patient reports the use of cigarette tobacco products, smokes one-half pack cigarettes per day. ROS: 16:51 Constitutional: Negative for fever, chills, and weight loss, Eyes: Negative for injury, willy pain, redness, and discharge, ENT: Negative for injury, pain, and discharge, Neck: Negative for injury, pain, and swelling, Cardiovascular: Negative for chest pain, palpitations, and edema, Respiratory: Negative for shortness of breath, cough, wheezing, and pleuritic chest pain, Abdomen/GI: Negative for abdominal pain, nausea, vomiting, diarrhea, and constipation, Back: Negative for injury and pain, : Negative for injury, bleeding, discharge, and swelling, MS/Extremity: Negative for injury and deformity, Neuro: Negative for headache, weakness, numbness, tingling, and seizure, Psych: Negative for depression, anxiety, suicide ideation, homicidal ideation, and hallucinations, Allergy/Immunology: Negative for hives, rash, and allergies, Endocrine: Negative for neck swelling, polydipsia, polyuria, polyphagia, and marked weight changes, Hematologic/Lymphatic: Negative for swollen nodes, abnormal bleeding, and unusual bruising. 16:51 Skin: Positive for cellulitis. Exam: 16:51 Constitutional: This is a well developed, well nourished patient who is awake, alert, willy and in no acute distress. Head/Face: Normocephalic, atraumatic. Eyes: Pupils equal round and reactive to light, extra-ocular motions intact. Lids and lashes normal. Conjunctiva and sclera are non-icteric and not injected. Cornea within normal limits. Periorbital areas with no swelling, redness, or edema. ENT: Nares patent. No nasal discharge, no septal abnormalities noted. Tympanic membranes are normal and external auditory canals are clear. Oropharynx with no redness, swelling, or masses, exudates, or evidence of obstruction, uvula midline. Mucous membranes moist. Neck: Trachea midline, no thyromegaly or masses palpated, and no cervical lymphadenopathy. Supple, full range of motion without nuchal rigidity, or vertebral point tenderness. No Meningismus. Chest/axilla: Normal chest wall appearance and motion. Nontender with no deformity. No lesions are appreciated. Cardiovascular: Regular rate and rhythm with a normal S1 and S2. No gallops, murmurs, or rubs. Normal PMI, no JVD. No pulse deficits. Respiratory: Lungs have equal breath sounds bilaterally, clear to auscultation and percussion. No rales, rhonchi or wheezes noted. No increased work of breathing, no retractions or nasal flaring. Abdomen/GI: Soft, non-tender, with normal bowel sounds. No distension or tympany. No guarding or rebound. No evidence of tenderness throughout. Back: No spinal tenderness. No costovertebral tenderness. Full range of motion. MS/ Extremity: Pulses equal, no cyanosis. Neurovascular intact. Full, normal range of motion. Neuro: Awake and alert, GCS 15, oriented to person, place, time, and situation. Cranial nerves II-XII grossly intact. Motor strength 5/5 in all extremities. Sensory grossly intact. Cerebellar exam normal. Normal gait. 16:51 Skin: Appearance: Color: normal in color, Temperature: normal temperature, Moisture: normal moisture, petechiae, not noted, ecchymosis, not noted, sebaceous cyst, left neck, mild to moderate erythema, cellulitis, that is minimal. Vital Signs: 12:34 BP 133 / 78; Pulse 89; Resp 16 S; Temp 98.1(TE); Pulse Ox 98% on R/A; Weight 74.84 kg ca1 (R); Height 5 ft. 6 in. (167.64 cm) (R); Pain 10/10; 12:34 Body Mass Index 26.63 (74.84 kg, 167.64 cm) ca1 MDM: 15:55 Patient medically screened. [facility] 05/25 16:50 Order name: Ice pack; Complete Time: 16:51 [facility] Administered Medications: 17:14 Drug: Bactrim (160 mg-800 mg (DS) 1 tablet Route: PO; aa5 17:14 Follow up: Response: Medication administered at discharge. aa5 17:14 Drug: Doxycycline 200 mg Route: PO; aa5 17:14 Follow up: Response: Medication administered at discharge. aa5 Disposition: 05/25/20 16:56 Discharged to Home. Impression: Sebaceous cyst - infected. - Condition is Stable. - Discharge Instructions: Epidermal Cyst, [id number], Epidermal Cyst. - Prescriptions for Ibuprofen 600 mg Oral Tablet - take 1 tablet by ORAL route every 6 hours As needed take with food; 20 tablet. Doxycycline Hyclate 100 mg Oral Tablet - take 1 tablet by ORAL route every 12 hours; 20 tablet. Bactrim DS 800- 160 mg Oral Tablet - take 1 tablet by ORAL route every 12 hours for 10 days; 20 tablet. - Medication Reconciliation Form, Thank You Letter, Antibiotic Education, Prescription Opioid Use form. - Follow up: Private Physician; When: 2 - 3 days; Reason: Recheck today's complaints, Re-evaluation by your physician. Follow up: Srinivasa Paul MD; When: 2 - 3 days; Reason: Recheck today's complaints, Continuance of care, Re-evaluation by your physician. - Problem is new. - Symptoms have improved. Signatures: Fermin Lomax MD MD cha Calderon, Audri, RN RN aa5 Ashley Prakash RN RN ca1 Corrections: (The following items were deleted from the chart) 17:14 16:56 05/25/2020 16:56 Discharged to Home. Impression: Sebaceous cyst - infected. aa5 Condition is Stable. Forms are Medication Reconciliation Form, Thank You Letter, Antibiotic Education, Prescription Opioid Use. Follow up: Private Physician; When: 2 - 3 days; Reason: Recheck today's complaints, Re-evaluation by your physician. Follow up: Srinivasa Paul; When: 2 - 3 days; Reason: Recheck today's complaints, Continuance of care, Re-evaluation by your physician. Problem is new. Symptoms have improved. willy
--- NOTE | 2020-05-25 16:57 | ER ---
Nurse's Notes [facility] Name: Magaly Sprague Age: 55 yrs Sex: Female : 1965 Arrival Date: 05/25/2020 Time: 11:11 Bed 26 Private MD: out of town, doctor Diagnosis: Sebaceous cyst-infected Presentation: 05/25 12:34 Chief complaint: Patient states: Cyst at the back of L ear. Started 6 years ago, but it ca1 was tiny and was not hurting me. Sometime last night, It got bigger, very tender. I think it is causing the pain on the L side of my face, L jaw. the pain is causing me pain when I swallow. Coronavirus screen: Client denies travel out of the [place] in the last 14 days. At this time, the client does not indicate any symptoms associated with coronavirus-19. Ebola Screen: Patient negative for fever greater than or equal to 101.5 degrees Fahrenheit, and additional compatible Ebola Virus Disease symptoms Patient denies exposure to infectious person. Patient denies travel to an Ebola-affected area in the 21 days before illness onset. No symptoms or risks identified at this time. Initial Sepsis Screen: Does the patient meet any 2 criteria? No. Patient's initial sepsis screen is negative. Does the patient have a suspected source of infection? No. Patient's initial sepsis screen is negative. Risk Assessment: Do you want to hurt yourself or someone else? Patient reports no desire to harm self or others. Onset of symptoms was May 25, 2020. 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 - Social history:: Smoking status: Patient reports the use of cigarette tobacco products, smokes one-half pack cigarettes per day. Screenin:20 Abuse screen: Denies threats or abuse. Nutritional screening: No deficits noted. aa5 Tuberculosis screening: No symptoms or risk factors identified. Fall Risk None identified. Assessment: 16:20 General: Appears comfortable, Behavior is calm, cooperative. Pain: Complains of pain in aa5 left ear Pain currently is 10 out of 10 on a pain scale. Quality of pain is described as tender. Neuro: Level of Consciousness is awake, alert, obeys commands, Oriented to person, place, time, situation. Cardiovascular: Patient's skin is warm and dry. Respiratory: Airway is patent Respiratory effort is even, unlabored, Respiratory pattern is regular, symmetrical. GI: No signs and/or symptoms were reported involving the gastrointestinal system. : No signs and/or symptoms were reported regarding the genitourinary system. EENT: Reports pain in left ear. Derm: Skin is pink, warm \T\ dry. Musculoskeletal: Range of motion: intact in all extremities. 17:10 Reassessment: Patient is alert, oriented x 3, equal unlabored respirations, skin aa5 warm/dry/pink. Vital Signs: 12:34 BP 133 / 78; Pulse 89; Resp 16 S; Temp 98.1(TE); Pulse Ox 98% on R/A; Weight 74.84 kg ca1 (R); Height 5 ft. 6 in. (167.64 cm) (R); Pain 10/10; 12:34 Body Mass Index 26.63 (74.84 kg, 167.64 cm) ca1 ED Course: 11:11 Patient arrived in ED. ds1 11:11 out of town, doctor is Private Physician. ds1 12:39 Triage completed. ca1 12:40 Arm band placed on right wrist. ca1 15:55 Fermin Lomax MD is Attending Physician. willy 16:20 Patient has correct armband on for positive identification. Bed in low position. aa5 16:51 Meenu Ritter, EBONI is Primary Nurse. aa5 16:56 Srinivasa Paul MD is Referral Physician. willy 17:10 No provider procedures requiring assistance completed. Patient did not have IV access aa5 during this emergency room visit. Administered Medications: 17:14 Drug: Bactrim (160 mg-800 mg (DS) 1 tablet Route: PO; aa5 17:14 Follow up: Response: Medication administered at discharge. aa5 17:14 Drug: Doxycycline 200 mg Route: PO; aa5 17:14 Follow up: Response: Medication administered at discharge. aa5 Outcome: 16:56 Discharge ordered by . willy 17:10 Discharged to home ambulatory. aa5 17:10 Condition: stable 17:10 Discharge instructions given to patient, Instructed on discharge instructions, follow up and referral plans. medication usage, Demonstrated understanding of instructions, follow-up care, medications, Prescriptions given X 3. 17:14 Patient left the ED. aa5 Signatures: Fermin Lomax MD MD cha Sanford, Demi ds1 Meenu Ritter RN RN aa5 Ashley Prakash RN RN ca1
[2020-05-25 17:18] VITALS: BP 133/78; TEMP 98.1; O2SAT 98
[2020-05-25] MEDS ORDERED: SMZ./TMP. 800/160 MG TABLET ONE (17:28)
[2020-05-25] MEDS ORDERED: DOXYCYCLINE 100 MG CAP PO ONE (17:28)
== END 2020-05-25 17:14 | disposition home or self-care (01) ==
LOC: ER 11:08
DX: L03.811 Cellulitis of head [any part, except face] (principal); F17.210 Nicotine dependence, cigarettes, uncomplicated
CPT/HCPCS: 99283

== ENCOUNTER 2021-10-03 15:33 | Emergency (ER) | payer OTHER ==
[2021-10-03] MEDS ORDERED: HYDROCODONE/APAP 5/325 MG TAB ONE (16:25)
--- NOTE | 2021-10-03 17:48 | RAD REPORT ---
EXAM DESCRIPTION: RAD - Knee Right 3 View - 10/03/2021 5:36 pm CLINICAL HISTORY: PAIN COMPARISON: No comparisons FINDINGS/IMPRESSION: No acute fracture. No malalignment. Medial and lateral compartment spurring. Pa tellofemoral compartment spurring.
--- NOTE | 2021-10-03 18:47 | EDPHYS ---
Physician Documentation [facility] Name: Magaly Sprague Age: 56 yrs Sex: Female : 1965 Arrival Date: 10/03/2021 Time: 15:34 Bed Waiting Private MD: ED Physician Chetan Nuñez HPI: 10/04 00:02 This 56 yrs old Female presents to ER via Ambulatory with complaints of Knee Pain. kb 00:02 The patient presents with pain, that is acute, swelling, tenderness. The complaints kb affect the right knee. Context: The problem was sustained at home, resulted from an unknown cause, the patient can partially bear weight, the patient is able to ambulate. Onset: The symptoms/episode began/occurred today. Modifying factors: The symptoms are alleviated by nothing. the symptoms are aggravated by movement, weight bearing. Associated signs and symptoms: Pertinent positives: swelling, Pertinent negatives calf tenderness, fever, nausea, numbness, rash, tingling, vomiting, warmth, weakness. Treatment prior to arrival includes: no previous treatment. Severity of symptoms: At their worst the symptoms were moderate, in the emergency department the symptoms are unchanged. The patient has not experienced similar symptoms in the past. The patient has not recently seen a physician. Patient states she stood up from chair and felt a pop in her right knee with sudden onset of pain. Complains of difficulty walking due to pain.. 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 - Social history:: Smoking status: Patient reports the use of cigarette tobacco products, smokes one pack cigarettes per day. Patient/guardian denies using alcohol, street drugs. ROS: 10/04 00:01 Constitutional: Negative for fever, chills, and weight loss. kb MS/extremity: Positive for injury or acute deformity, pain, swelling, tenderness, of the right knee. All other systems are negative. Exam: 00:01 Constitutional: This is a well developed, well nourished patient who is awake, alert, kb and in no acute distress. Head/Face: Normocephalic, atraumatic. ENT: Moist Mucous membranes Respiratory: Respirations even and unlabored. No increased work of breathing. Talking in full sentences Skin: Warm, dry with normal turgor. Normal color. Neuro: Awake and alert, GCS 15, oriented to person, place, time, and situation. Moves all extremities. Normal gait. Psych: Awake, alert, with orientation to person, place and time. Behavior, mood, and affect are within normal limits. 00:01 Musculoskeletal/extremity: Extremities: grossly normal except: noted in the right knee: decreased ROM, pain, swelling, tenderness, ROM: limited active range of motion due to pain, in the right knee, Circulation is intact in all extremities. Sensation intact. Weight bearing: can bear weight with assistance only. Vital Signs: 10/03 16:07 BP 146 / 69; Pulse 107; Resp 20; Temp 98.6; Pulse Ox 94% ; Weight 88.45 kg; Height 5 jh6 ft. 1 in. (154.94 cm); Pain 9/10; 16:07 Body Mass Index 36.84 (88.45 kg, 154.94 cm) jh6 MDM: 15:41 Patient medically screened. kb 10/04 00:00 Data reviewed: vital signs, nurses notes. Data interpreted: Pulse oximetry: on room air kb is 95 %. Interpretation: normal. Counseling: I had a detailed discussion with the patient and/or guardian regarding: the historical points, exam findings, and any diagnostic results supporting the discharge/admit diagnosis, radiology results, the need for outpatient follow up, a orthopedic surgeon, to return to the emergency department if symptoms worsen or persist or if there are any questions or concerns that arise at home. 10/03 16:18 Order name: Knee Right 3 View XRAY; Complete Time: 18:01 kb 10/03 18: Order name: Knee Immobilizer kb 10/03 18: Order name: Crutches vega Administered Medications: 10/03 16:19 Drug: HYDROcodone-acetaminophen 5 mg-325 mg 1 tabs Route: PO; jh6 Disposition: 10/04 09:37 Co-signature as Attending Physician, Chetan Nuñez DO I was immediately available on-site ms3 in the Emergency Department for consultation in the care of the patient.. Disposition Summary: 10/03/21 18:47 Discharge Ordered Location: Home kb Condition: Stable kb Diagnosis - Sprain of other specified parts of right knee kb Followup: kb - With: Emergency Department - When: As needed - Reason: Worsening of condition Followup: kb - With: Private Physician - When: 2 - 3 days - Reason: Recheck today's complaints, Continuance of care, Re-evaluation by your physician Discharge Instructions: - Discharge Summary Sheet kb - Knee Sprain, Adult, [id number] kb Forms: - Medication Reconciliation Form kb - Thank You Letter kb - Antibiotic Education kb - Prescription Opioid Use kb Prescriptions: - Diclofenac Sodium 75 mg Oral tablet,delayed release (DR/EC) - take 1 tablet by ORAL route 2 times per day As needed; 30 tablet; Refills: 0, kb Product Selection Permitted Signatures: Dispatcher [employer] EDMS Angela Elaine, VISHAL MARION-Chetan Carter, DO ms3 Marianne Hutchins RN RN jh6 Corrections: (The following items were deleted from the chart) 10/03 16:11 16:10 PMHx: possable TIA; 6 jh6
--- NOTE | 2021-10-03 18:47 | ER ---
Nurse's Notes [facility] Name: Magaly Sprague Age: 56 yrs Sex: Female : 1965 Arrival Date: 10/03/2021 Time: 15:34 Bed Waiting Private MD: Diagnosis: Sprain of other specified parts of right knee Presentation: 10/03 16:07 Chief complaint: Patient states: Pt reports sudden onset of right knee pain upon [facility] standing. Pt reports "I felt it pop.". Coronavirus screen: Vaccine status: Patient reports receiving the 2nd dose of the covid vaccine. Client denies travel out of the [place] in the last 14 days. Ebola Screen: Patient negative for fever greater than or equal to 101.5 degrees Fahrenheit, and additional compatible Ebola Virus Disease symptoms Patient denies exposure to infectious person. Patient denies travel to an Ebola-affected area in the 21 days before illness onset. Initial Sepsis Screen: Does the patient meet any 2 criteria? No. Patient's initial sepsis screen is negative. Does the patient have a suspected source of infection? No. Patient's initial sepsis screen is negative. Risk Assessment: Do you want to hurt yourself or someone else? Patient reports no desire to harm self or others. 16:07 Method Of Arrival: Ambulatory [facility] 16:07 Onset of symptoms was October 03, 2021 at 12:30. [facility] 16:07 Acuity: ELISEO 4 [facility] Triage Assessment: 16:10 General: Appears in no apparent distress. Behavior is calm, cooperative. Pain: [facility] Complains of pain in lateral aspect of right knee and right knee Pain does not radiate. Pain currently is 9 out of 10 on a pain scale. Quality of pain is described as throbbing. 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 - Social history:: Smoking status: Patient reports the use of cigarette tobacco products, smokes one pack cigarettes per day. Patient/guardian denies using alcohol, street drugs. Vital Signs: 16:07 BP 146 / 69; Pulse 107; Resp 20; Temp 98.6; Pulse Ox 94% ; Weight 88.45 kg; Height 5 jh6 ft. 1 in. (154.94 cm); Pain 9/10; 16:07 Body Mass Index 36.84 (88.45 kg, 154.94 cm) 6 ED Course: 15:34 Patient arrived in ED. mr 15:41 Angela Elaine FNP-C [facility] kb 15:41 Chetan Nuñez DO is Attending Physician. kb 16:10 Triage completed. jh6 17:38 Knee Right 3 View XRAY In Process Unspecified. EDMS Administered Medications: 16:19 Drug: HYDROcodone-acetaminophen 5 mg-325 mg 1 tabs Route: PO; 6 Outcome: 18:47 Discharge ordered by MD. kb 19:04 Patient left the ED. kb Signatures: Dispatcher [employer] EDMS Angela Elaine FNP-C FNP-Ckb Rivera Janine HutchinsMarianne RN RN 6 Corrections: (The following items were deleted from the chart) 16:11 16:10 PMHx: possable TIA; [place] [id number]
[2021-10-03 19:24] VITALS: BP 146/69; TEMP 98.6; O2SAT 94
== END 2021-10-03 19:04 | disposition home or self-care (01) ==
LOC: ER 15:33
DX: S83.8X1A Sprain of other specified parts of right knee, initial encounter (principal); F17.210 Nicotine dependence, cigarettes, uncomplicated

== ENCOUNTER 2023-02-04 10:50 | Emergency (ER) | payer OTHER ==
--- OUTSIDE RECORDS SUMMARY | 2023-02-04 10:53 | XMS REPORT | Continuity of Care Document ---
:1965 Author Organization [facility] t Address [address] [place] [address] Care Team Providers Name Role Phone Unavailable Unavailable Unavailable Problems This patient has no known problems. Allergies, Adverse Reactions, Alerts This patient has no known allergies or adverse reactions. Medications This patient has no known medications. Procedures This patient has no known procedures. Encounters Start End Encounter Admission Attending Care Care Encounter Source Date/Time Date/Time Type Type Clinicians Facility Department ID 2023-01-29 2023-01-29 Outpatient [facility] [id number] [place] 17:31:26 17:31:26 [id number] F Galindo 2022-12-31 2022-12-31 Outpatient [facility] [place] 08:17:43 08:17:43 [id number] F Bastian 2022-12-30 2022-12-30 Outpatient [facility] [id number] [place] 11:41:30 11:41:30 [id number] F Galindo Results Test Description Test Time Test Comments Results Result Comments Source RPR 2023-01-01 05:27:55 Test Item Value Reference Range Interpretation Comme nts RPR RESULT (test code = 3501) NON-REACTIVE NON-REACTIVE RPR TITER (test code = 3500) NOT INDIC. TITER NOT INDIC. LIPID [id number] 03:22:56 Test Item Value Reference Range Interpretation Comments CHOLESTEROL (test 157 MG/DL <200 code = 2210) TRIGLYCERIDES (test 148 MG/DL <150 code = 2232) HDL CHOLESTEROL (test 39 MG/DL >39 L code = 2220) CALC LDL CHOL (test 93 MG/DL <100 NOTE: C ALCULATED LDL code = 2237) IS BASED ON MARK-LUNA METHOD WHICHINCLUDES ADJUSTABLE TRIGLYCERIDE:VL DL CHOLESTEROL RAT IO.THIS FACTOR VARIES B Y MEASURED TRIGLY CERIDE AND NON-HDLCHOL ESTEROL CONCENTRATIONS WITH INCREASED CALCU LATED LDL SEENIN HIGH ER TRIGLYCERIDE OR LOWER NON-HDL SPECIME NS. FOR MOREINFORMATION , SEE CLIENT ANNOUNCE MENT AT [email or web address] [email or web address] RATIO LDL/HDL 2.38 RATIO <3.22 (test code = 2238) VITAMIN B 12 AND FOLIC [id number] 03:17:49 Test Item Value Reference Range Interpretation Comments VITAMIN B-12 (test 433 PG/ML 200-950 code = 2840) FOLIC ACID (test <2.0 UG/L SEE BELOW L INTE RPRETIVE code = 2695) RANGES DE FICIENCY . . . . . . . . . . . . . . . UG/L <4.0 POS SIBLE DEFICIENCY. . . . . . . . . . . UG/L 4.0- 5.9 SUFFICIENT . . . . . . . . . . . . . . . UG/L >=6.0 UNLESS OT HERWISE INDICATED, ALL TESTING PERFORMED AT [facility] [employer] [address] [place] [address] DIRECTOR: SIDNEY PAIZ M.D. [facility] NUMBER [id number] [facility] [place] O. [id number] HEMOGLOBIN [id number] 03:05:26 Test Item Value Reference Range Interpretation Comments HEMOGLOBIN A1c (test 6.3 % 4.2-5.6 H AMERIC AN DIABETES code = 94852) ASSOCIATION IDELINES FOR HGB A1C: PREDIABETES/INC REASED RISK . . . . . . . 5.7 -6.4% DIAGNOSIS OF DI ABETES . . . . . . . . . >=6 .5% WITH CONFIRMATION OR APPROPRIATE SYMPTOMS NOTE: ASSAY MAY BE AFFECTED BY HEMOGLOBINOPATH IES (SICKLE CELL ANEMIA, S- C DISEASE, OTHERS) OR JEM FICIALLY LOWERED BY DECR EASED RED CELL SURVIVAL ( HEMOLYTIC ANEMIAS, BLOOD LOSS, ETC.). CONSIDER ALTERN ATE TESTING OR LABORATORY C ONSULTATION. CBC W/AUTO DIFF WITH [id number] 02:05:03 Test Item Value Reference Range Interpretation Comments WBC (test code = 11.4 K/UL 3.5-11.0 H 1001) RBC (test code = 4.74 M/UL 3.80-5.40 1002) HEMOGLOBIN (test code 14.9 G/DL 11.5-15.5 = 1003) HEMATOCRIT (test code 42.4 % 34.0-45.0 = 1004) MCV (test code = 89.5 fL 80.0-99.0 1005) MCH (test code = 31.4 PG 25.0-33.0 1006) MCHC (test code = 35.1 G/DL 31.0-36.0 1007) RDW (test code = 12.3 % 11.5-15.0 1038) NEUTROPHILS (test 68.0 % code = 1008) LYMPHOCYTES (test 23.0 % code = 1010) MONOCYTES (test code 6.9 % = 1011) EOSINOPHILS (test 1.1 % code = 1012) BASOPHILS (test code 0.5 % = 1013) IMMATURE GRANULOCYTES 0.5 % (test code = 1036) NUCLEATED RBCS (test 0.0 /100 WBC'S See_Comment [Aut omated code = 1065) message] The sy stem which generated this result transmitted reference range : 0.0. The refere nce range was not u sed to interpret th is result as normal/abnormal . PLATELET COUNT (test 315 K/UL 130-400 code = 1015) ABSOLUTE NEUTROPHILS 7.73 K/UL 1.50-7.50 H (test code = 1066) ABSOLUTE LYMPHOCYTES 2.62 K/UL 1.00-4.00 (test code = 1067) ABSOLUTE MONOCYTES 0.79 K/UL 0.20-1.00 (test code = 1068) ABSOLUTE EOSINOPHILS 0.13 K/UL 0.00-0.50 (test code = 1040) ABSOLUTE BASOPHILS 0.06 K/UL 0.00-0.20 (test code = 1069) ABS IMMATURE 0.06 K/UL 0.00-0.10 GRANULOCYTES (test code = 1020) ABS NUCLEATED RBCS 0.00 K/UL 0.00-0.11 (test code = 10867) COMPREHENSIVE METABOLIC [id number] 05:16:02 Test Item Value Reference Range Interpretation Comments GLUCOSE (test code = 261 MG/DL 70-99 H 2216) BUN (test code = 14 MG/DL 6-2207) CREATININE (test 0.58 MG/DL 0.60-1.30 L code = 221) eGFR (2020 CKD-EPI) 107 >60 (test code = 04457) ML/MIN/1.73 CALC BUN/CREAT (test 24 RATIO 6-28 code = 2235) SODIUM (test code = 139 MEQ/L 302-995 0691) POTASSIUM (test code 4.2 MEQ/L 3.5-5.4 = 2227) CHLORIDE (test code 103 MEQ/L 95-107 = 2214) CARBON DIOXIDE (test 26 MEQ/L 19-31 code = 2205) CALCIUM (test code = 10.0 MG/DL 8.5-10.5 2208) PROTEIN, TOTAL (test 7.0 G/DL 6.1-8.3 code = 2228) ALBUMIN (test code = 4.5 G/DL 3.5-5.2 2200) CALC GLOBULIN (test 2.5 G/DL 1.9-3.7 code = 224) CALC A/G RATIO (test 1.8 RATIO 1.0-2.6 code = 223) BILIRUBIN, TOTAL 0.5 MG/DL See_Comment [Automated message] (test code = 220) The syste m which generated this result transmit anupama reference range : <=1.2. The refe rence range was not u sed to interpret th is result as normal/abnormal . ALKALINE PHOSPHATASE 113 U/L 40-133 (test code = 2204) AST (test code = 20 U/L 9-40 2217) ALT (test code = 37 U/L 5-40 2218) LIPID [id number] 05:16:02 Test Item Value Reference Range Interpretation Comments CHOLESTEROL (test 269 MG/DL <200 H code = 2210) TRIGLYCERIDES (test 298 MG/DL <150 H code = 2232) HDL CHOLESTEROL (test 33 MG/DL >39 L code = 2220) CALC LDL CHOL (test 185 MG/DL <100 H NOTE: C ALCULATED LDL code = 2237) IS BASED ON MARK-LUNA METHOD WHICHINCLUDES ADJUSTABLE TRIGLYCERIDE:VL DL CHOLESTEROL RAT IO.THIS FACTOR VARIES B Y MEASURED TRIGLY CERIDE AND NON-HDLCHOL ESTEROL CONCENTRATIONS WITH INCREASED CALCU LATED LDL SEENIN HIGH ER TRIGLYCERIDE OR LOWER NON-HDL SPECIME NS. FOR MOREINFORMATION , SEE CLIENT ANNOUNCE MENT AT [email or web address] [email or web address] RATIO LDL/HDL 5.61 RATIO <3.22 H (test code = 2238) ALBUMIN/CREATININE RATIO, URINE, [id number] 04:27:33 Test Item Value Reference Range Interpretation Comments CREATININE, URINE, 171.3 MG/DL NOT ESTAB CONC. (test code = 2072) ALBUMIN, URINE, 2.1 MG/DL NOT ESTAB RANDOM (test code = 94960) CALC 12 MG/G <30 Note: ALBUMIN/CREAT, RND Albumin/C reatinine ratio (test code = reference inter krys 26003) reflects ADA an d NKF guidelines. UNL ESS OTHERWISE INDIC ATED, ALL TEST[facility]FORM [facility] [employer], [address] [address] LABORATORY DIRE CTOR: SHAAN HERNANDEZ M.D. CLIA NUMBER [id number] [place] [id number] HEMOGLOBIN [id number] 03:26:52 Test Item Value Reference Range Interpretation Comments HEMOGLOBIN A1c (test 11.4 % 4.2-5.6 H AMERIC AN DIABETES code = 38093) ASSOCIATION IDELINES FOR HGB A1C: PREDIABETES/INC REASED RISK . . . . . . . 5 .7-6.4% DIAGNOSIS OF DI ABETES . . . . . . . . . >=6 .5% WITH CONFIRMATION OR APPROPRIATE SYMPTOMS NOTE: ASSAY MAY BE AFFECTED BY HEMOGLOBINOPATH IES (SICKLE CELL ANEMIA, S- C DISEASE, OTHERS) OR JEM FICIALLY LOWERED BY DECR EASED RED CELL SURVIVAL ( HEMOLYTIC ANEMIAS, BLOOD LOSS, ETC.). CONSIDER ALTERN ATE TESTING OR LABORATORY C ONSULTATION.
[2023-02-04] MEDS ORDERED: MORPHINE 4 MG/ML SYR ONE (11:46)
[2023-02-04] MEDS ORDERED: ONDANSETRON 4 MG/2 ML VIAL ONE (11:47)
[2023-02-04] MEDS ORDERED: NA CHLORIDE 0.9% 1,000 ML ONE (11:47)
[2023-02-04 11:50] LABS: Absolute Lymphocytes (CBC) 1.6 K/uL (0.7-4.9); Hematocrit 46.8 % (36.0-45.0); Lymphocytes % 10.2 % (15.3-44.8); MCV 90.1 fL (80-100); MPV 8.5 fL (7.6-11.3); Platelets 305 thou/uL (152-406)
[2023-02-04 12:15] LABS: Bilirubin Total 0.4 mg/dL (0.2-1.0); Potassium 4.1 mEq/L (3.5-5.1)
[2023-02-04 12:20] LABS: SARS-CoV-2 Antigen Rapid Res Negative (Negative)
--- NOTE | 2023-02-04 12:33 | RAD REPORT ---
EXAM DESCRIPTION: CTAbdomen Pelvis W Contrast - 02/04/2023 12:19 pm CLINICAL HISTORY: Abdominal pain. ABD PAIN COMPARISON: Abdomen Pelvis W Contrast dated 10/18/2018 TECHNIQUE: Biphasic CT imaging of the abdomen and pelvis was performed with 100 ml non-ionic IV cont rast. All CT scans are performed using dose optimization technique as appropriate and may include automated exposure control or mA/KV adjustment according to patient size. FINDINGS: The lung bases are clear. Mild diffuse fatty liver. Cholecystectomy clips. The spleen, pancreas, adrenal glands and kidneys nancy w no worrisome abnormality. Small fat containing ventral hernia supraumbilical region noted. No bowel obstruction, free air, free fluid or abscess. Prominent colonic diverticulosis seen particul arnold in the sigmoid colon without diverticulitis. The appendix is normal. No evidence of significant lymphadenopathy. Prominent posterior disc bulge L4-5 and L5-S1. IMPRESSION: Prominent diffuse fatty liver. Significant diverticulosis coli is present, greatest in the sigmoid colon. Small fat containing ventral hernia.
[2023-02-04 13:26] LABS: Urine Bilirubin NEGATIVE (Negative); Urine Blood Negative (Negative); Urine Clarity Clear (Clear); Urine Color Colorless (Yellow); Urine Glucose NEGATIVE (Negative)
[2023-02-04 13:27] LABS: Urine Protein NEGATIVE (Negative); Urine Urobilinogen Normal (Normal); Urine pH 6.5 (5.0-7.0)
[2023-02-04 13:38] LABS: Specific Gravity > 1.030 (1.005-1.030)
[2023-02-04] MEDS ORDERED: MAGNES/ALUMIN/SIMET 30ML UCUP ONE (14:59)
[2023-02-04] MEDS ORDERED: FAMOTIDINE 20 MG/2 ML VIAL IV ONE (15:00)
--- NOTE | 2023-02-04 15:07 | ER ---
Nurse's Notes [facility] Name: Magaly Sprague Age: 57 yrs Sex: Female : 1965 Arrival Date: 02/04/2023 Time: 10:50 Bed 13 Private MD: Diagnosis: Other gastritis;Nausea with vomiting, unspecified Presentation: 02/04 11:25 Chief complaint: Patient states: Vomiting, nausea, diarrhea along with abdominal pain nj1 today. Coronavirus screen: Vaccine status: Patient reports receiving the 2nd dose of the covid vaccine. Ebola Screen: Patient denies travel to an Ebola-affected area in the 21 days before illness onset. Initial Sepsis Screen: Does the patient meet any 2 criteria? HR > 90 bpm. No. Patient's initial sepsis screen is negative. Does the patient have a suspected source of infection? No. Patient's initial sepsis screen is negative. Risk Assessment: Do you want to hurt yourself or someone else? Patient reports no desire to harm self or others. Onset of symptoms was February 04, 2023. 11:25 Method Of Arrival: Ambulatory [facility] 11:25 Acuity: ELISEO 3 nj1 POLYSOMNOGRAPHY TECH: 15:25 LMP N/A - Post-menopause, Not me1 Historical: - Allergies: 11:27 No Known Allergies; nj1 - PMHx: 11:27 Diabetes mellitus; Hypercholesterolemia; nj1 - PSHx: 11:27 section; Cholecystectomy; nj1 - Immunization history:: Client reports receiving the 2nd dose of the Covid vaccine. - Social history:: Smoking status: Reported history of juuling and/or vaping. Screenin:43 [facility] ED Fall Risk Assessment (Adult) Score/Fall Risk Level 0 - 2 = Low Risk hb Oriented to surroundings, Maintained a safe environment, Educated pt \T\ family on fall prevention, incl call for assistance when getting out of bed, Assessed \T\ reinforced patient's understanding of fall precautions. Abuse screen: Denies threats or abuse. Denies injuries from another. Nutritional screening: No deficits noted. Tuberculosis screening: No symptoms or risk factors identified. Assessment: 11:42 General: Appears in no apparent distress. uncomfortable, Behavior is calm, cooperative. hb Pain: Pain currently is 10 out of 10 on a pain scale. Neuro: Level of Consciousness is awake, alert, obeys commands, Oriented to person, place, time, situation. Cardiovascular: Patient's skin is warm and dry. Respiratory: Respiratory effort is even, unlabored, Respiratory pattern is regular, symmetrical. GI: Reports nausea, vomiting, right flank pain. : No signs and/or symptoms were reported regarding the genitourinary system. EENT: No signs and/or symptoms were reported regarding the EENT system. Derm: Skin is pink, warm \T\ dry. Musculoskeletal: No signs and/or symptoms reported regarding the musculoskeletal system. Vital Signs: 11:25 BP 129 / 100; Pulse 106; Resp 18; Temp 98.2(O); Pulse Ox 95% on R/A; Weight 90.72 kg; nj1 Height 5 ft. 1 in. ; Pain 10/10; 12:00 BP 140 / 79; Pulse 95; Resp 16; Pulse Ox 93% on R/A; me1 13:00 BP 152 / 82; Pulse 85; Resp 16; Pulse Ox 95% on R/A; me1 13:30 BP 146 / 82; Pulse 84; Resp 16; Pulse Ox 93% on R/A; me1 13:45 BP 130 / 75; Pulse 83; Resp 17; Pulse Ox 94% on R/A; me1 14:15 BP 123 / 64; Pulse 89; Resp 16; Pulse Ox 94% on R/A; me1 14:42 BP 142 / 72; Pulse 92; Resp 18; Pulse Ox 94% on R/A; me1 15:25 BP 131 / 80; Pulse 91; Resp 16; Pulse Ox 96% on R/A; me1 11:25 Body Mass Index 37.79 (90.72 kg, 154.94 cm) [facility] 11:25 Pain Scale: Adult [facility] ED Course: 10:52 Patient arrived in ED. im 10:55 [facility] Rojas FNP [facility] 10:55 Dada Han MD is Attending Physician. [facility] 11:27 Triage completed. nj1 11:27 Arm band placed on left wrist. nj1 11:37 Inserted saline lock: 22 gauge in right antecubital area, using aseptic technique. hb ,using aseptic technique. BY KJ [employer] Blood collected. 11:43 Patient has correct armband on for positive identification. Provided Education on: hb tests, result times. 11:48 Ligia Casiano, EBONI is Primary Nurse. me1 12:20 CT Abd/Pelvis - IV Contrast Only In Process Unspecified. EDMS 13:09 Urinalysis w/ reflexes Sent. me1 15:25 No provider procedures requiring assistance completed. me1 15:40 IV discontinued, intact, bleeding controlled, No redness/swelling at site. Pressure me1 dressing applied. Administered Medications: 11:41 Drug: NS 0.9% IV 1000 ml IV at 1 bolus Per protocol; 1000 mL bolus Route: IV; Rate: 1 hb bolus; Site: right antecubital; 14:41 Follow up: IV Status: Completed infusion me1 11:41 Drug: Ondansetron IVP 4 mg IVP once; over 2 minutes Route: IVP; Site: right antecubital;hb 15:02 Follow up: Response: No adverse reaction me1 11:41 Drug: morphine IVP or IV 4 mg IVP once over 4 mins Route: IVP; Infused Over: 4 mins; hb Site: right antecubital; 15:02 Follow up: Response: No adverse reaction me1 14:48 Not Given (Physician Discretion): GI Cocktail without - (maaloxsuspension 30 jh7 ml, lidocaine mucous membrane liquid 2 % 15 ml) PO once 14:50 Drug: Famotidine IVP 20 mg IVP once; dilute with 10 mL 0.9% NaCl; give over 2 minutes me1 Route: IVP; Site: right antecubital; 15:02 Follow up: Response: No adverse reaction me1 14:52 Drug: Alum-Mag Hydroxide-Simeth PO Suspension (200 mg-200 mg-20 mg/5 mL) 30 ml PO once me1 Route: PO; 15:02 Follow up: Response: No adverse reaction me1 Medication: 15:25 VIS not applicable for this client. me1 Outcome: 15:07 Discharge ordered by . [facility] 15:40 Discharged to home ambulatory, with family, me1 15:40 Condition: stable 15:40 Discharge instructions given to patient, family, Instructed on discharge instructions, follow up and referral plans. medication usage, Demonstrated understanding of instructions, follow-up care, medications, Prescriptions given X 3, 15:40 Patient left the ED. me1 Signatures: Dispatcher [facility] Ángela Morrow RN RN hb Marianne Rojas FNP COPY ROOM TECHNICIAN jh7 Julienne Rodgers, RN RN nj1 Elizabeth Munoz Michelle, RN RN me1
--- NOTE | 2023-02-04 15:07 | EDPHYS ---
Physician Documentation [facility] Name: Magaly Sprague Age: 57 yrs Sex: Female : 1965 Arrival Date: 02/04/2023 Time: 10:50 Bed 13 Private MD: ED Physician Dada Han HPI: 02/04 10:55 This 57 yrs old Female presents to ER via Unassigned with complaints of Abdominal Pain, jh7 Vomiting. 10:55 The patient presents with abdominal pain in the epigastric area. Onset: The jh7 symptoms/episode began/occurred this morning. The symptoms radiate to back. Associated signs and symptoms: Pertinent positives: nausea and vomiting, Pertinent negatives: chest pain, constipation, diarrhea, fever. The symptoms are described as sharp. Patient reports that her doctor went up on her Victoza to 1.8 5 days ago. History of diabetes, cholecystectomy, and .. 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 - Social history:: Smoking status: Reported history of juuling and/or vaping. ROS: 10:55 Constitutional: Negative for fever, chills, and weight loss, Eyes: Negative for injury, jh7 pain, redness, and discharge, Cardiovascular: Negative for chest pain, palpitations, and edema, Respiratory: Negative for shortness of breath, cough, wheezing, and pleuritic chest pain, Back: Negative for injury and pain, MS/Extremity: Negative for injury and deformity, Skin: Negative for injury, rash, and discoloration, Neuro: Negative for headache, weakness, numbness, tingling, and seizure, 10:55 Abdomen/GI: Positive for abdominal pain, nausea and vomiting, Negative for diarrhea, constipation, 10:55 All other systems are negative, Exam: 10:55 Constitutional: This is a well developed, well nourished patient who is awake, alert, jh7 and in no acute distress. Head/Face: Normocephalic, atraumatic. ENT: Nares patent. No nasal discharge, no septal abnormalities noted. Oropharynx with no redness, swelling, or masses, exudates, or evidence of obstruction, uvula midline. Mucous membranes moist. Cardiovascular: Regular rate and rhythm with a normal S1 and S2. No gallops, murmurs, or rubs. Normal PMI, no JVD. No pulse deficits. Respiratory: Lungs have equal breath sounds bilaterally, clear to auscultation and percussion. No rales, rhonchi or wheezes noted. No increased work of breathing, no retractions or nasal flaring. Back: No spinal tenderness. No costovertebral tenderness. Full range of motion. Skin: Warm, dry with normal turgor. Normal color with no rashes, no lesions, and no evidence of cellulitis. MS/ Extremity: Pulses equal, no cyanosis. Neurovascular intact. Full, normal range of motion. Neuro: Awake and alert, GCS 15, oriented to person, place, time, and situation. Motor strength 5/5 in all extremities. Sensory grossly intact. Normal gait. 10:55 Abdomen/GI: Inspection: abdomen appears normal, Bowel sounds: normal, Palpation: soft, moderate abdominal tenderness, in the epigastric area, Vital Signs: 11:25 BP 129 / 100; Pulse 106; Resp 18; Temp 98.2(O); Pulse Ox 95% on R/A; Weight 90.72 kg; nj1 Height 5 ft. 1 in. ; Pain 10/10; 12:00 BP 140 / 79; Pulse 95; Resp 16; Pulse Ox 93% on R/A; me1 13:00 BP 152 / 82; Pulse 85; Resp 16; Pulse Ox 95% on R/A; me1 13:30 BP 146 / 82; Pulse 84; Resp 16; Pulse Ox 93% on R/A; me1 13:45 BP 130 / 75; Pulse 83; Resp 17; Pulse Ox 94% on R/A; me1 14:15 BP 123 / 64; Pulse 89; Resp 16; Pulse Ox 94% on R/A; me1 14:42 BP 142 / 72; Pulse 92; Resp 18; Pulse Ox 94% on R/A; me1 15:25 BP 131 / 80; Pulse 91; Resp 16; Pulse Ox 96% on R/A; me1 11:25 Body Mass Index 37.79 (90.72 kg, 154.94 cm) [facility] 11:25 Pain Scale: Adult nj1 MDM: 10:55 Patient medically screened. [facility] 02/04 11:01 Order name: CBC with Diff; Complete Time: 11:57 [facility] 02/04 11:01 Order name: CMP; Complete Time: 12:17 [facility] 02/04 11:01 Order name: Lipase; Complete Time: 12:17 [facility] 02/04 11:01 Order name: Urinalysis w/ reflexes; Complete Time: 13:42 [facility] 02/04 11:42 Order name: Flu; Complete Time: 12:38 [facility] 02/04 11:42 Order name: SARS-COV-2 Antigen Rapid; Complete Time: 12:38 [facility] 02/04 11:01 Order name: CT Abd/Pelvis - IV Contrast Only; Complete Time: 12:38 [facility] 02/04 11:01 Order name: IV Saline Lock; Complete Time: 11:39 [facility] 02/04 11:01 Order name: Labs collected and sent; Complete Time: 11:39 [facility] 02/04 13:01 Order name: Recheck Vital Signs [facility] Administered Medications: 11:41 Drug: NS 0.9% IV 1000 ml IV at 1 bolus Per protocol; 1000 mL bolus Route: IV; Rate: 1 hb bolus; Site: right antecubital; 14:41 Follow up: IV Status: Completed infusion me1 11:41 Drug: Ondansetron IVP 4 mg IVP once; over 2 minutes Route: IVP; Site: right antecubital;hb 15:02 Follow up: Response: No adverse reaction me1 11:41 Drug: morphine IVP or IV 4 mg IVP once over 4 mins Route: IVP; Infused Over: 4 mins; hb Site: right antecubital; 15:02 Follow up: Response: No adverse reaction me1 14:48 Not Given (Physician Discretion): GI Cocktail without - (maaloxsuspension 30 jh7 ml, lidocaine mucous membrane liquid 2 % 15 ml) PO once 14:50 Drug: Famotidine IVP 20 mg IVP once; dilute with 10 mL 0.9% NaCl; give over 2 minutes me1 Route: IVP; Site: right antecubital; 15:02 Follow up: Response: No adverse reaction me1 14:52 Drug: Alum-Mag Hydroxide-Simeth PO Suspension (200 mg-200 mg-20 mg/5 mL) 30 ml PO once me1 Route: PO; 15:02 Follow up: Response: No adverse reaction me1 Disposition Summary: 02/04/23 15:07 Discharge Ordered Notes: Location: Home [facility] Problem: new [facility] Symptoms: have improved [facility] Condition: Stable [facility] Diagnosis - Other gastritis [facility] - Nausea with vomiting, unspecified [facility] Followup: [facility] - With: Private Physician - When: 2 - 3 days - Reason: Recheck today's complaints Discharge Instructions: - Discharge Summary Sheet [facility] - Gastritis, Adult [facility] - Nausea and Vomiting, Adult [facility] Forms: - Medication Reconciliation Form [facility] - Thank You Letter [facility] - Antibiotic Education [facility] - Patient Portal Instructions [facility] - Leadership Thank You Letter [facility] Prescriptions: - ondansetron 4 mg Oral Tablet,disintegrating - take 1 tablet ORAL route every 4-6 hours As needed; 20 tablet; Refills: 0, [facility] Product Selection Permitted - Carafate 1 gram Oral tablet - take 1 tablet ORAL route 4 times per day take on an empty stomach, beginning on [facility] waking and last dose at bedtime; 30 tablet; Refills: 0, Product Selection Permitted - Pepcid 20 mg Oral Tablet - take 1 tablet ORAL route once daily; 20 tablet; Refills: 0, Product Selection [facility] Permitted Signatures: Dispatcher [employer] Ángela Enriquez, RN EBONI Marianne Rojas, LUBRICATING SPECIALIST [place] [id number] Julienne Rodgers RN RN nj1 Ligia Casiano RN RN me1
[2023-02-04 16:21] VITALS: TEMP 98.2
[2023-02-04 16:29] VITALS: BP 131/80; O2SAT 96
== END 2023-02-04 15:40 | disposition home or self-care (01) ==
LOC: ER 10:50
DX: K29.60 Other gastritis without bleeding (principal); R11.2 Nausea with vomiting, unspecified; E11.9 Type 2 diabetes mellitus without complications; E78.00 Pure hypercholesterolemia, unspecified
CPT/HCPCS: 96361; 85025; 36415; 81003; 83690; 80053; 87804 ×2; 74177; 96375; 96374; 99284; 87811; Q9967; J2405; J7030